=== PATIENT | male | born 1940 | race Caucasian/White ===

== ENCOUNTER → 2018-01-28 | Outpatient (CLI) | payer MEDICARE ==
--- NOTE | 2018-01-29 09:26 | US ---
EXAMINATION TYPE: US kidneys/renal and bladder DATE OF EXAM: 01/28/2018 COMPARISON: NONE CLINICAL HISTORY: R82.99 Other abnormal findings in urine. Creatinine clearance. Abnormal glomerular filtration EXAM MEASUREMENTS: Right Kidney: 14.7 x 5.5 x 5.7 cm Left Kidney: 11.3 x 6.0 x 4.8 cm Right Kidney: enlarged, cystic areas noted, largest = 6.5 x 7.1 x 6.6cm Left Kidney: somewhat lobulated, no evidence of hydronephrosis Bladder: appears wnl Bilateral Jets seen: no, right jet is identified only. Cortical medullary differentiation is maintained. Anechoic foci associated with the right kidney show increased through transmission, imperceptible wall and exophytic location at the lower pole, centere d at the cortical medullary level of the mid pole. Enlarged prostate is thought to cause an inferior impression on the urinary bladder. IMPRESSION: Simple cyst associated with the right kidney. Suspect prostate enlargement. Additional findings above .
== END | disposition home or self-care (01) ==
LOC: RADUSMAIN 17:16
PROVIDERS: ATTEND Family Medicine
DX: N28.1 Cyst of kidney, acquired (principal)
CPT/HCPCS: 76770

== ENCOUNTER → 2018-09-25 | Outpatient (CLI) | payer MEDICARE ==
--- NOTE | 2018-09-25 08:02 | US ---
EXAMINATION TYPE: US liver DATE OF EXAM: 09/25/2018 COMPARISON: NONE CLINICAL HISTORY: [id number] ABN LIVER ENZYMES. abnormal labs, no pain, NPO. Patient states having GB rem wilder but doesn't remember when. EXAM MEASUREMENTS: Liver Length: 19.8 cm CBD: 0.4 cm CHD: 0.6 cm Right Kidney: 13.9 x 5.7 x 5.1 cm Pancreas: Obscured by bowel gas Liver: Appears enlarged in size. Course. Increased attenuation, decreased visualization of vessels suggestive of fatty infiltrate , which limits evaluation for underlying hepatic masses. Gallbladder: Surgically absent Evidence for sonographic Moody's sign: neg CBD: wnl CHD: wnl Right Kidney: Multiple cystic appearing lesions seen. Largest measured. 1- Lateral lower= 6.8 x 6.7 x 6.7 cm. 2- Mid= 3.7 x 3.1 x 2.9 cm. IMPRESSION: 1. Sonographic findings most compatible with hepatic steatosis. 2. Simple appearing right renal cysts measuring up to 6.8 cm. 3. Surgical absence of the gallbladder.
== END | disposition home or self-care (01) ==
LOC: RADUSWWP 06:48
PROVIDERS: ATTEND Family Medicine
DX: N28.1 Cyst of kidney, acquired (principal); R74.8 Abnormal levels of other serum enzymes; Z90.49 Acquired absence of other specified parts of digestive tract
CPT/HCPCS: 76705

== ENCOUNTER → 2019-06-22 | Outpatient (CLI) | payer MEDICARE ==
[2019-06-22 23:46] LABS: African American GFR (CKD) 47.5 (60.0-200.0); Anion Gap 12.8 mmol/L (4.00-12.00); BUN/Creat Ratio 13.13 Ratio (12.00-20.00); Carbon Dioxide 26.2 mmol/L (21.6-31.8); Potassium 3.7 mmol/L (3.5-5.5)
[2019-06-23 01:25] LABS: Hemoglobin A1C 7.2 % (4.0-6.0)
== END | disposition home or self-care (01) ==
LOC: LABWHC1 16:22
PROVIDERS: ATTEND Internal Medicine
DX: E11.65 Type 2 diabetes mellitus with hyperglycemia (principal)
CPT/HCPCS: 36415; 80048; 83036

== ENCOUNTER → 2020-09-11 | Outpatient (CLI) | payer MEDICARE ==
[2020-09-11 09:06] LABS: Basophils % (A) 1 %; Eosinophils # (A) 0.3 k/uL (0-0.7); Eosinophils % (A) 4 %; HCT 41.3 % (39.0-53.0); HGB 13.9 gm/dL (13.0-17.5); Lymphocytes # (A) 1.2 k/uL (1.0-4.8); Lymphocytes % (A) 19 %; MCH 28.7 pg (25.0-35.0); MCHC 33.5 g/dL (31.0-37.0); MCV 85.5 fL (80.0-100.0); Mean Platelet Volume 7.5; Monocytes # (A) 0.4 k/uL (0-1.0); Monocytes % (A) 5 %; Neutrophils # (A) 4.6 k/uL (1.3-7.7); Neutrophils % (A) 70 %; Platelet Count 208 k/uL (150-450); RBC 4.84 m/uL (4.30-5.90); RDW 13.1 % (11.5-15.5); WBC 6.6 k/uL (3.8-10.6)
[2020-09-11 09:23] LABS: Calcium 9.6 mg/dL (8.4-10.2); Potassium 3.3 mmol/L (3.5-5.1)
[2020-09-11 09:25] LABS: Partial Thromboplastin Time 40.2 sec (22.0-30.0); Prothrombin Time 51.4 sec (9.0-12.0)
[2020-09-11 09:39] LABS: Appearance,Urine Clear (Clear); Bilirubin,Urine Negative (Negative); Blood,Urine Trace (Negative); Color,Urine Yellow; Glucose,Urine (UA) Negative (Negative); Ketones,Urine Negative (Negative); Leukocyte Esterase,Urine Negative (Negative); Mucus,Urine Rare /hpf; Nitrite,Urine Negative (Negative); Protein,Urine Trace (Negative); RBC,Urine 6 /hpf (0-5); Specific Gravity,Urine 1.015 (1.001-1.035); Squamous Epithelial Cell,Urine <1 /hpf (0-4); Urobilinogen,Urine <2.0 mg/dL (<2.0); WBC,Urine 1 /hpf (0-5)
[2020-09-11 09:49] LABS: INR 5.3 (<1.2)
--- NOTE | 2020-09-11 14:33 | XR ---
EXAMINATION TYPE: XR chest 2V DATE OF EXAM: 09/11/2020 COMPARISON: Chest x-ray 08/19/2013 HISTORY: Presurgical TECHNIQUE: Frontal and lateral views of the chest are obtained. FINDINGS: There is no focal air space opacity, pleural effusion, or pneumothorax seen. The cardiac silhouette size is within normal limits. Aorta is dense as on prior exam. The osseous structures ar e intact. Surgical clips present in the upper abdomen. IMPRESSION: No acute cardiopulmonary process.
== END | disposition home or self-care (01) ==
LOC: LABPAT 07:43
PROVIDERS: ATTEND Orthopaedic Surgery Orthopaedic Surgery of the Spine
DX: Z01.818 Encounter for other preprocedural examination (principal); M48.02 Spinal stenosis, cervical region
CPT/HCPCS: 36415; 71046; 80048; 81001; 85025; 85610; 85730; 86850; 86900; 86901; 93005

== ENCOUNTER → 2020-09-29 | Outpatient (CLI) | payer MEDICARE ==
[2020-09-29 10:38] LABS: Basophils # (A) 0.1 k/uL (0-0.2); Basophils % (A) 1 %; Eosinophils # (A) 0.3 k/uL (0-0.7); Eosinophils % (A) 4 %; HCT 41.5 % (39.0-53.0); HGB 13.9 gm/dL (13.0-17.5); Lymphocytes # (A) 1.3 k/uL (1.0-4.8); Lymphocytes % (A) 19 %; MCHC 33.5 g/dL (31.0-37.0); MCV 86.3 fL (80.0-100.0); Mean Platelet Volume 7.6; Monocytes # (A) 0.3 k/uL (0-1.0); Monocytes % (A) 5 %; Neutrophils # (A) 4.7 k/uL (1.3-7.7); Neutrophils % (A) 70 %; Platelet Count 205 k/uL (150-450); RDW 13.3 % (11.5-15.5); WBC 6.8 k/uL (3.8-10.6)
[2020-09-29 10:40] LABS: Appearance,Urine Clear (Clear); Bacteria,Urine Rare /hpf; Bilirubin,Urine Negative (Negative); Blood,Urine Large (Negative); Color,Urine Yellow; Glucose,Urine (UA) 1+ (Negative); Ketones,Urine Negative (Negative); Leukocyte Esterase,Urine Negative (Negative); Mucus,Urine Rare /hpf; Nitrite,Urine Negative (Negative); PH, Urine 5.5 (5.0-8.0); Protein,Urine 1+ (Negative); RBC,Urine >182 /hpf (0-5); Specific Gravity,Urine 1.018 (1.001-1.035); Urobilinogen,Urine <2.0 mg/dL (<2.0); WBC,Urine 6 /hpf (0-5)
[2020-09-29 10:47] LABS: INR 1.1 (<1.2); Prothrombin Time 11.2 sec (9.0-12.0)
[2020-09-29 10:48] LABS: Partial Thromboplastin Time 25.5 sec (22.0-30.0)
== END | disposition home or self-care (01) ==
LOC: LABPAT 10:06
PROVIDERS: ATTEND Orthopaedic Surgery Orthopaedic Surgery of the Spine
DX: Z01.818 Encounter for other preprocedural examination (principal); M48.02 Spinal stenosis, cervical region
CPT/HCPCS: 81001; 85025; 85610; 85730

== ENCOUNTER 2020-10-02 06:10 | Inpatient (IN) | payer MEDICARE ==
[2020-09-07 11:14] VITALS: BMI 30.5
[~2020-10-02 06:10] MED LIST: ceFAZolin 1,000 MG in SODIUM CHLORIDE 0.9% IRRIGATIO 1,000 ML IRRIGATION PRN
[2020-10-02] MEDS ORDERED: ONDANSETRON 4 MG/2 ML VIAL IVP ONE (06:48)
[2020-10-02] MEDS ORDERED: DEXAMETHASONE SOD PHOSPHATE 4 MG/ML 1 ML VIAL IV ONE (06:48)
[2020-10-02] MEDS ORDERED: MIDAZOLAM 2 MG/2 ML VIAL IV PRN (06:48)
[2020-10-02] MEDS ORDERED: LIDOCAINE 1% (10MG/ML) FOR IV START INTRADERMA ONE (07:07)
[2020-10-02] MEDS: LACTATED RINGERS 1,000 ML IV SCH (07:07)
[2020-10-02 07:17] LABS: Glucose,Whole Blood 103 mg/dL (75-99)
[2020-10-02 07:28] LABS: INR 1.1 (<1.2); Prothrombin Time 11.8 sec (9.0-12.0)
[2020-10-02] MEDS ORDERED: SUCCINYLCHOLINE CHLORIDE 100 MG/5 ML SYR IV ONE (07:30)
[2020-10-02] MEDS ORDERED: PROPOFOL 10 MG/ML 20 ML VIAL IV ONE (07:30)
[2020-10-02] MEDS ORDERED: LIDOCAINE 1% INJ 10MG/ML (20 ML MDV) ONE (07:30)
[2020-10-02] MEDS ORDERED: NEOSTIGMINE 1 MG/ML 10 ML VIAL ONE (07:30)
[2020-10-02] MEDS ORDERED: DEXAMETHASONE SOD PHOSPHATE 10 MG/ML 1 ML VIAL ONE (07:30)
[2020-10-02] MEDS ORDERED: ROCURONIUM 10 MG/ML (5 ML VIAL) IV ONE (07:30)
[2020-10-02] MEDS ORDERED: fentaNYL (PF) 50 MCG/ML 2 ML AMP ONE (07:30)
[2020-10-02] MEDS ORDERED: PHENYLEPHRINE-0.9% NACL SYG 1,000 MCG/10 ML SYRINGE ONE (07:30)
[2020-10-02] MEDS ORDERED: GLYCOPYRROLATE 0.2 MG/ML 2 ML VIAL ONE (07:30)
[2020-10-02] MEDS ORDERED: ePHEDrine SULFATE/0.9% NACL/PF 50 MG/5 ML SYRINGE IV ONE (07:30)
[2020-10-02] MEDS ORDERED: THROMBIN (BOVINE) 5,000 UNIT VIAL TOPICAL ONE (07:51)
[2020-10-02] MEDS ORDERED: GELATIN SPONGE,ABSORB (LARGE) 1 EACH SPONGE TOPICAL ONE (07:51)
[2020-10-02] MEDS ORDERED: LIDOCAINE 0.5%-EPI 1:200,000 50 ML VIAL SQ ONE (07:51)
[2020-10-02] MEDS ORDERED: LACTATED RINGERS 1,000 ML IV ONE (08:46)
[2020-10-02 08:57] LABS: Glucose,Whole Blood 110 mg/dL (75-99)
--- NOTE | 2020-10-02 08:58 | XR ---
EXAMINATION TYPE: XR cervical spine 1V DATE OF EXAM: 10/02/2020 COMPARISON: NONE HISTORY: Needle placement TECHNIQUE: One view submitted FINDINGS: Metallic instrument overlying the cervical spine the approximate levels C4-C5 anteriorly. E ndotracheal tube suggested. Degenerative change with facet arthropathy. IMPRESSION: Intraoperative localization
[2020-10-02 10:08] LABS: Glucose,Whole Blood 131 mg/dL (75-99)
[2020-10-02 10:49] LABS: Glucose,Whole Blood 148 mg/dL (75-99)
--- NOTE | 2020-10-02 11:14 | XR ---
EXAMINATION TYPE: XR cervical spine 1V DATE OF EXAM: 10/02/2020 COMPARISON: NONE HISTORY: Postop TECHNIQUE: One view submitted FINDINGS: Endotracheal tube is seen there is postsurgical changes involving the vertebral column. Res olution limited by intraoperative technique. IMPRESSION: Postoperative change
[2020-10-02] MEDS ORDERED: HYDROmorphone 0.5 MG/0.5 ML SYRINGE IVP PRN (11:22)
[2020-10-02] MEDS ORDERED: HYDROcodone/APAP 5-325MG 1 EACH TAB PO PRN (11:22)
[2020-10-02] MEDS ORDERED: HYDROmorphone 1 MG/ML 1 ML SYRINGE IVP PRN (11:22)
[2020-10-02] MEDS ORDERED: ACETAMINOPHEN TAB 325 MG TAB PO PRN (11:22)
[2020-10-02] MEDS ORDERED: ONDANSETRON 4 MG/2 ML VIAL IVP PRN (11:22)
[2020-10-02] MEDS ORDERED: BENZOCAINE/MENTHOL LOZENG 1 EACH LOZENGE MUCOUS MEM PRN (11:22)
[2020-10-02] MEDS ORDERED: traMADol 50 MG TAB PO PRN (11:23)
--- NOTE | 2020-10-02 11:32 | P.OP ---
Date of Procedure: 10/02/20 Preoperative Diagnosis: Cervical and myelopathy, cervical stenosis C3 4 C4 5 C5 6 C6 7, upper extremity radiculopathy, upper extremity weakness, neck pain, degenerative disc disease, possible autofusion C5 6 Postoperative Diagnosis: Same, with findings of stable auto fusion C5 6 Anesthesia: GETA Pathology: none sent Condition: stable Disposition: PACU Description of Procedure: BRIEF OPERATIVE NOTE Preoperative Diagnosis:Cervical and myelopathy, cervical stenosis C3 4 C4 5 C5 6 C6 7, upper extremity radiculopathy, upper extremity weakness, neck pain, degenerative disc disease, possible autofusion C5 6 Postoperative Diagnosis: Same with findings of stable autofusion at C5 6 Procedure: Anterior cervical decompression and fusion C3 4 C4 5 C6 7 Placement of interbody graft C3 4 C4 5 C6 7 Exploration of autofusion C5 6 with findings of stable autofusion Application of anterior cervical plate C3 4 5 6 and 7 Surgeon: Dr. Lacey [employer] Scientist: Dimitry Brady is present throughout the entire the case persistence during positioning, dissection, exposure, visualization, and all crucial elements of the case as well as closure. Anesthesia: General anesthesia per Dr. Salazar Estimated blood loss: Approximately 200 mL Complications: None apparent Components implanted: K2M [place] anterior cervical plate system with vikos interbody under bone graft and 1 mL of DBX bone putty supplement the bone graft Disposition: To recovery room in good stable condition. OPERATIVE INDICATIONS The patient has had long-standing issues in their neck and upper extremities. He had been having some stability however over the past several months has been developing significant worsening at his neck and upper extremities. He has noticed some changes in his pain and his function at his upper extremities and somewhat at his balance. He was found have severe degenerative changes at his cervical spine from C3 to C7 with evidence of some severe cervical stenosis and early myelopathy. The patient has been through conservative treatment. He is having worsening of his symptoms and surgical options were explained to him. We discussed various treatment options including surgery, and the patient wishes to proceed with surgery We discussed the risk, patient's alternatives and benefits of surgery including but not limited to, risk of bleeding risk of infection, risk of need for further surgery, risk of decreased, loss of motion, muscle function, malunion nonunion, hardware failure, nerve damage, paralysis, heart attack, and . OPERATIVE SUMMARY After discussing all the risks, patient alternatives and benefits at length, the patient elected to proceed with surgical intervention, signed informed consent, and presented for their procedure. The patient was seen and examined in the preoperative holding area and the surgical site was marked. The patient was given antibiotics and brought to the operating room. The patient was positioned on the operating room table in a supine position being careful to pad any bony prominences and pressure points. The patient was sedated and intubated by anesthesia in standard fashion. Once the airway and C- spine were stabilized the patient's arms were padded and tucked at her side, with her shoulders gently taped. The head was placed in a donut pad with the neck in good neutral alignment and position. We were careful to maintain the patient's cervical spine and good neutral alignment and position throughout. The patient was prepped and draped in a normal standard fashion. An appropriate timeout and keystone protocol performed. We were able to proceed with the surgery. The local wound area was infiltrated with local anesthetic. An incision was made longitudinally approximately 3 cm over the appropriate levels from C3 to C7. Dissection was taken down subcutaneously to the level of the platysma which was split in line with its fibers. Dissection was taken with a carotid approach, with the trachea and esophagus medial and the carotid sheath laterally. We dissected down to the anterior surface of the vertebral bodies. Intraoperative x-ray was taken which showed a marker at the appropriate level of C4 5. With the appropriate level positively confirmed, we were able to proceed with discectomy at the appropriate levels starting at C3 4 and working caudally this [id number]. All of the operative levels were exposed appropriately. The large anterior osteophytes throughout particularly at C5 6 and C6 7 The patient had all their twitches back, and there was no evidence of recurrent laryngeal issue. The wound was copiously irrigated and suctioned dry as had been done periodically throughout the case. I was taking on the anterior spur at C56. There is no evidence of any motion at C5 6. There is no evidence of significant disc space and there appeared to be stable autofusion at that level. I took down a significant portion of anterior spur and there was findings of fusion across the anterior vertebral body at C5 6. I felt that level was stable and decided not to pursue further takedown of the level or to pursue further discectomy or decompression at that level. I was able to find the appropriate disc space and motion at C34 C4 5 and C6 7 and proceeded with the anterior discectomy at these levels as planned. At the appropriate level/levels at C3 4 C4 5 and C6 7, I established an annulotomy with an 11 blade scalpel. A discectomy was performed with a combination of pituitary rongeurs, curettes, a high-speed bur, and Kerrison rongeurs. Large anterior osteophytes were removed. There is findings a large posterior osteophytes as well and these were taken down meticulously. The posterior longitudinal ligament was taken down as were any posterior osteophytes. This gave good central and bilateral foraminal decompression. There is no evidence of any dural tear or leak. The endplates were prepared with a high-speed bur. With the endplates in good parallel position, I was able to size for the appropriate size interbody graft. The wound was irrigated and suctioned dry the graft was prepared and malleted into position. It had good alignment and position with the anterior surface flush with the anterior surface of the vertebral bodies. This was done similarly the appropriate levels at C3 4 C4 5 and C6 7. With the grafts intact, I was able to measure and contour and appropriate sized plate. The plate was positioned at the midline over the appropriate levels from C3 to C7. Screw holes were established with a hand drill and drill guide. Screws were placed in good alignment and position with adequate bony purchase. They were seated under the locking device. The construct was checked and found to be stable. Intraoperative x-ray was taken which showed good alignment and position of the implants at the appropriate levels. There was no evidence of any dural tear or leak. Good hemostasis was maintained. The wound was copiously irrigated and suctioned dry as had been done periodically throughout the case. The platysma was closed with absorbable suture. The subcutaneous tissue was closed. The subcuticular tissue was closed with absorbable suture. The wound was cleaned and dried and dressed appropriately. A soft cervical collar was placed appropriately. The patient was woken up by anesthesia, extubated, transferred back gently to their hospital bed and brought to the recovery room in good stable condition. The patient will be admitted to the hospital for appropriate postoperative care, medical management and monitoring. We will continue to follow them closely about the postoperative course.
[2020-10-02] MEDS: HYDROmorphone 0.5 MG/0.5 ML SYRINGE IVP PRN ×4 (12:18→14:47)
[2020-10-02] MEDS ORDERED: REPAGLINIDE 1 MG TAB PO SCH (17:30)
[2020-10-02] MEDS ORDERED: PIOGLITAZONE 30 MG TAB PO SCH (17:30)
[2020-10-02] MEDS ORDERED: amLODIPine 5 MG TAB PO SCH (17:30)
[2020-10-02 17:36] LABS: Glucose,Whole Blood 220 mg/dL (75-99)
[2020-10-02] MEDS ORDERED: INSULIN ASPART (NovoLOG) 100 UNIT/ML VIAL SQ ONE (17:41)
[2020-10-02] MEDS: SODIUM CHLORIDE 0.9% 1,000 ML IV SCH (18:18)
[2020-10-02] MEDS: PROPAFENONE 150 MG TAB PO SCH (20:46)
[2020-10-03 05:40] VITALS: BP 152/79; PULSE 112; RESP 20; TEMP 98.3
[2020-10-03] MEDS: SODIUM CHLORIDE 0.9% 1,000 ML IV SCH (05:41)
[2020-10-03 07:22] LABS: Glucose,Whole Blood 191 mg/dL (75-99)
[2020-10-03] MEDS: LACTATED RINGERS 1,000 ML IV SCH (08:00)
[2020-10-03] MEDS: PROPAFENONE 150 MG TAB PO SCH (08:08)
[2020-10-03] MEDS ORDERED: ATORVASTATIN 20 MG TAB PO SCH (09:00)
[2020-10-03] MEDS ORDERED: ASPIRIN 81 MG PO SCH (09:00)
[2020-10-03] MEDS ORDERED: lisinopriL 10 MG TAB PO SCH (09:00)
[2020-10-03] MEDS ORDERED: MULTIVITAMINS, THERA 1 EACH TAB PO SCH (09:00)
[2020-10-03] MEDS ORDERED: SENNOSIDES-DOCUSATE SODIUM 1 EACH TAB PO SCH ×2 (09:00)
[2020-10-03] MEDS ORDERED: hydroCHLOROthiazide 25 MG TAB PO SCH (09:00)
[2020-10-03] MEDS ORDERED: APIXABAN 5 MG TAB PO SCH (09:00)
[2020-10-03] MEDS ORDERED: INSULIN DETEMIR (LEVEMIR) 100 UNIT/ML SYR SQ SCH (09:00)
--- NOTE | 2020-10-03 11:31 | XR ---
EXAMINATION TYPE: XR cervical spine 1V DATE OF EXAM: 10/02/2020 COMPARISON: NONE HISTORY: Postop TECHNIQUE: One view submitted FINDINGS: Single lateral view demonstrates endotracheal tube and portions of the postsurgical region which appear in near-anatomic alignment. Diffuse osteopenia and facet arthropathy noted. Soft tissue artifact limits portion of the lower cervical spine. IMPRESSION: Postoperative change
== END 2020-10-03 11:03 | disposition home or self-care (01) | DRG 472 ==
LOC: OR 06:10 → 5NMEDONC 11:26 → OR 11:38 → 5NMEDONC 17:53
PROVIDERS: ADMIT Orthopaedic Surgery Orthopaedic Surgery of the Spine; ATTEND Orthopaedic Surgery Orthopaedic Surgery of the Spine
PROC: 0RB30ZZ Excision of Cervical Vertebral Disc, Open Approach (ICD-10-PCS; 2020-10-02)
PROC: 01N10ZZ Release Cervical Nerve, Open Approach (ICD-10-PCS; 2020-10-02)
PROC: 0RG20A0 Fusion of 2 or more Cervical Vertebral Joints with Interbody Fusion Device, Anterior Approach, Anterior Column, Open Approach (ICD-10-PCS; principal; 2020-10-02 07:30)
DX: M48.02 Spinal stenosis, cervical region (principal); M50.01 Cervical disc disorder with myelopathy, high cervical region; E11.9 Type 2 diabetes mellitus without complications; M50.11 Cervical disc disorder with radiculopathy, high cervical region; I10 Essential (primary) hypertension; H91.90 Unspecified hearing loss, unspecified ear; E78.5 Hyperlipidemia, unspecified; M43.02 Spondylolysis, cervical region; E66.9 Obesity, unspecified; Z68.31 Body mass index [BMI] 31.0-31.9, adult; Z79.01 Long term (current) use of anticoagulants; Z79.82 Long term (current) use of aspirin; Z79.899 Other long term (current) drug therapy; Z87.891 Personal history of nicotine dependence
CPT/HCPCS: 72020; 81001; 85025; 85610; 85730; 86850; 86900; 86901

== ENCOUNTER → 2022-01-15 | Outpatient (CLI) | payer MEDICARE ==
--- NOTE | 2022-01-15 12:49 | CT ---
EXAMINATION TYPE: CT pelvis w con DATE OF EXAM: 01/15/2022 COMPARISON: None. HISTORY: Prostate cancer CT DLP: 1013.2 mGycm Automated exposure control for dose reduction was used. CONTRAST: Performed with oral and with IV Contrast, patient injected with 80 mL of Isovue 300. FINDINGS: There are 2 large thin-walled cyst from the mid to lower pole level right kidney. Urinary bladder jose antonio ws mild to moderate distention. There is enlarged prostate consistent with BPH. Scattered adjacent pe lvic phleboliths. Few prominent but subcentimeter lymph nodes along the iliac chain vessels bilaterally. For reference there is 2.0 x 0.9 cm lymph node on the right axial image 43. No free fluid in the pelvis. Images of the pelvis show contrast-filled appendix. No suspicious small or large bowel dilatation. Mild to moderate axial joint space loss in both hips. Nonspecific round sclerotic lesion upper sacral level image 42. Additional small round sclerotic lesi ons L4 vertebra coronal image 36 along with L2 vertebra anteriorly sagittal image 43 with sclerosis a long the anterior superior endplate. Sclerotic bone lesions in the right proximal femur 3 levels port al image 37. Vague area of sclerosis right iliac bone just superior to the acetabulum on image 35 IMPRESSION: Suspicious scattered sclerotic lesions throughout the pelvis as detailed above worrisome for osseous metastatic disease should be correlated with same day bone scan. Nonspecific subcentimete r pelvic lymph nodes noted.
--- NOTE | 2022-01-15 15:56 | NM ---
EXAMINATION TYPE: NM bone scan whole body DATE OF EXAM: 01/15/2022 COMPARISON: CT same date HISTORY: Prostate cancer Delayed whole-body scanning was performed following the injection of 22.8 mCi Tc 99m MDP. Images acq uired 3 hours post injection. FINDINGS: Sclerotic foci involving the pelvis from CT are noted, the right ilium shows abnormal uptake as does the posterior left ilium, the posterior left ischium, right femoral neck. The posterior elements at L 5 show focal uptake which may be related to degenerative change of the facet. Uptake within the feet, left ankle, hands, wrists, elbows and shoulders is likely degenerative. Photo penic areas within the knees consistent with knee arthroplasties. There are focal areas of uptake inv olving the posterior mid ribs, thoracic vertebral body posterior elements. There is a focus of uptake within the sternum near the sternomanubrial joint and the anterior left second rib also shows abnorm al uptake. Soft tissue uptake is within normal limits. 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
== END | disposition home or self-care (01) ==
LOC: RADNMMAIN 10:34
PROVIDERS: ATTEND Urology
DX: C61 Malignant neoplasm of prostate (principal)
CPT/HCPCS: 82565; 84520; 72193; 36415; 78306; A9503; Q9967

== ENCOUNTER 2022-06-09 15:05 | Emergency (ER) | payer MEDICARE ==
[2022-06-09 15:39] VITALS: TEMP 97.5
--- NOTE | 2022-06-09 15:50 | ED ---
General Adult HPI - General Chief complaint: Neuro Symptoms/Deficit Stated complaint: LT sided facial pain Time Seen by Provider: 06/09/22 15:40 Source: patient Mode of arrival: ambulatory Limitations: no limitations - History of Present Illness Initial comments: Dictation was produced using pbs[employer] dictation software. please excuse any grammatical, word or spelling errors. Chief Complaint: 81-year-old male presents with left-sided facial droop History of Present Illness: Patient is an 81-year-old male he presents emergency Department with left-sided facial droop. He began noticing systems yesterday. He started to feel like his eye began watering and he had a foreign body. That that is perhaps concrete dust. Today he went to lunch and had a drink when he noticed liquid dribbling out of the left side of his mouth. Decided come to the emergency department. Patient has a history of cancer. The ROS documented in this emergency department record has been reviewed and confirmed by me. Those systems with pertinent positive or negative responses have been documented in the HPI. All other systems are other negative and/or noncontributory. PHYSICAL EXAM: General Impression: Alert and oriented x3, not in acute distress HEENT: Normocephalic atraumatic, extra-ocular movements intact, pupils equal and reactive to light bilaterally, mucous membranes moist, mild conjunctivitis of the left eye Cardiovascular: Heart regular rate and rhythm Chest: Able to complete full sentences, no retractions, no tachypnea Abdomen: abdomen soft, non-tender, non-distended, no organomegaly Musculoskeletal: Pulses present and equal in all extremities, no peripheral edema Motor: no focal deficits noted Neurological: Left periorbital weakness, left-sided lower facial droop Skin: Intact with no visualized rashes Psych: Normal affect and mood ED course: 81 yo male w clinical presentation consistent with Russo palsy. Vital signs upon arrival are within acceptable limits. No concern for CVA because he has upper and lower facial findings. Computed tomography scan of brain is unremarkable. Patient counseled on eye care, steroid administration and antiviral administration. Advised follow up with primary care doctor. Return precautions discussed. Patient sent home with drops and eye ointment from the emergency department. Antivirals and prednisone prescription sent to patient's pharmacy. Patient given a dose of steroids and antivirals prior to discharge. - Related Data Home Medications Medication Instructions Recorded Confirmed Aspirin 81 mg PO DAILY 06/14/14 10/02/20 amLODIPine [Norvasc] 5 mg PO W/SUPPER 06/14/14 10/02/20 traMADol HCl [Ultram] 50 mg PO TID PRN 06/14/14 10/02/20 Eye Caps 1 cap PO DAILY 11/29/15 10/02/20 Multivitamin [Men's Multi-Vitamin] 1 tab PO DAILY 11/29/15 10/02/20 Insulin Glargine [Lantus] 55 unit SQ QAM 09/07/20 10/02/20 Apixaban [Eliquis] 5 mg PO BID 09/29/20 10/02/20 Atorvastatin [Lipitor] 20 mg PO DAILY 09/29/20 10/02/20 Pioglitazone [Actos] 30 mg PO W/SUPPER 09/29/20 10/02/20 Propafenone HCl 150 mg PO BID 09/29/20 10/02/20 Repaglinide [Prandin] 0.5 mg PO W/SUPPER 09/29/20 10/02/20 hydroCHLOROthiazide [Hydrodiuril] 25 mg PO DAILY 09/29/20 10/02/20 lisinopriL 30 mg PO DAILY 09/29/20 10/02/20 Previous Rx's Medication Instructions Recorded Artificial Tears-Hypromellose 1 drops LEFT EYE TID #10 ml 06/09/22 [Artificial Tear Drops] predniSONE 80 mg PO DAILY 7 Days #14 tab 06/09/22 valACYclovir HCL [Valtrex] 1,000 mg PO DAILY 7 Days #7 tablet 06/09/22 Allergies Allergy/AdvReac Type Severity Reaction Status Date / Time No Known Allergies Allergy Verified 06/09/22 15:39 Review of Systems ROS Statement: Those systems with pertinent positive or pertinent negative responses have been documented in the HPI. ROS Other: All systems not noted in ROS Statement are negative. Past Medical History Past Medical History: Atrial Fibrillation, Diabetes Mellitus, Hyperlipidemia, Hypertension, Osteoarthritis (OA), Sleep Apnea/CPAP/BIPAP Additional Past Medical History / Comment(s): limit of movement rt arm History of Any Multi-Drug Resistant Organisms: None Reported Past Surgical History: Cardiac Ablation, Cholecystectomy, Heart Catheterization, Joint Replacement Additional Past Surgical History / Comment(s): ROSS KNEE ARTHROPLASTY, ross cataracts Past Anesthesia/Blood Transfusion Reactions: No Reported Reaction Past Psychological History: No Psychological Hx Reported Smoking Status: Former smoker Past Alcohol Use History: None Reported Past Drug Use History: None Reported - Past Family History Mother Additional Family Medical History / Comment(s): MOM IS STILL ALIVE AT AGE 98 HAS Father History Unknown: Yes Brother(s) Family Medical History: Cancer General Exam Limitations: no limitations Course Vital Signs 06/09/22 15:37 Temperature 97.5 F L Pulse Rate 91 Respiratory 20 Rate Blood Pressure 180/82 O2 Sat by Pulse 99 Oximetry Disposition Clinical Impression: Russo palsy Disposition: HOME SELF-CARE Condition: Fair Instructions (If sedation given, give patient instructions): Russo Palsy (ED) Additional Instructions: Eye Protection Cornea eye protection Artificial tears qhr while patient is awake Ophthalmic ointment at night Eye should be taped shut at night Protective glasses or goggles Prednisone 60-80mg qday x1wk Valacyclovir 1000mg TID x1 week Prescriptions: Artificial Tears-Hypromellose [Artificial Tear Drops] 1 drops LEFT EYE TID #10 ml predniSONE 80 mg PO DAILY 7 Days #14 tab valACYclovir HCL [Valtrex] 1,000 mg PO DAILY 7 Days #7 tablet Is patient prescribed a controlled substance at d/c from ED?: No Referrals: Brown Diaz DO [Primary Care Provider] - 1-2 days Time of Disposition: 16:40
--- NOTE | 2022-06-09 16:28 | CT ---
EXAMINATION TYPE: CT brain wo con DATE OF EXAM: 06/09/2022 COMPARISON: None HISTORY: weakness CT DLP: 1110.4 mGycm Automated exposure control for dose reduction was used. Images obtained of the brain with no contrast. Ventricles have normal size. There is cerebral cortical atrophy. There is no mass effect or midline s hift. No sign of intracranial hemorrhage. Calvarium is intact. IMPRESSION: Cerebral atrophy. No acute intracranial abnormality.
[2022-06-09] MEDS ORDERED: ARTIFICIAL TEARS OINTMENT 3.5 GM TUBE LEFT EYE STA (16:29)
[2022-06-09] MEDS ORDERED: predniSONE 20 MG TAB PO STA (16:33)
[2022-06-09] MEDS ORDERED: valACYclovir HCL 1,000 MG TABLET PO STA (16:33)
[2022-06-09] MEDS ORDERED: ARTIFICIAL TEARS-HYPROMELLOSE DROPS 15 ML BTL LEFT EYE SCH (16:45)
[2022-06-09 16:57] VITALS: BP 142/84; PULSE 92; RESP 18
== END 2022-06-09 16:57 | disposition home or self-care (01) ==
LOC: EC 15:05
DX: G51.0 Bell's palsy (principal); I48.91 Unspecified atrial fibrillation; E78.5 Hyperlipidemia, unspecified; I10 Essential (primary) hypertension; Z87.891 Personal history of nicotine dependence; Z79.82 Long term (current) use of aspirin
CPT/HCPCS: 93005; 70450; 99284; J7512

== ENCOUNTER 2022-07-02 06:46 | Emergency (ER) | payer MEDICARE ==
[2022-07-02 06:56] VITALS: RESP 18
--- NOTE | 2022-07-02 07:22 | ED ---
Headache HPI - General Chief Complaint: Headache Stated Complaint: headache & neck pain Time Seen by Provider: 07/02/22 07:00 Source: patient, RN notes reviewed Mode of arrival: ambulatory Limitations: no limitations - History of Present Illness Initial Comments: 81-year-old male who has a history of A. 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 No shortness breath no palpitations no fevers chills sweats cough or other symptoms. He does note that he has a history of neck surgery with a plate and multiple screws. He's questioning whether this may be some of the etiology. Currently the symptoms and this morning her much improved. The pain he states nonspecific. He can't really rated at this time as far as severity or quality. Nothing seems make it better nothing seems to make it worse. Patient also states his legs feel somewhat weak and shaky this morning. He denies any change in his appetite or food or fluid intake. Patient states he does take some blood thinners No other current complaints or modifying factors MD Complaint: headache, other - Related Data Home Medications Medication Instructions Recorded Confirmed Aspirin EC [Ecotrin Low Dose] 81 mg PO DAILY 07/02/22 07/02/22 Cetirizine HCl [Zyrtec] 10 mg PO DAILY 07/02/22 07/02/22 Enzalutamide [Xtandi] 120 mg PO DAILY 07/02/22 07/02/22 Ergocalciferol [Vitamin D2 (1250 1,250 mcg PO TH 07/02/22 07/02/22 Mcg = 57561 Iu)] Ferrous Sulfate [Feosol] 325 mg PO DAILY 07/02/22 07/02/22 Gabapentin 300 mg PO BID 07/02/22 07/02/22 Insulin Aspart [NovoLOG Flexpen] 20 units SQ AC-TID 07/02/22 07/02/22 Insulin Glargine,Hum.rec.anlog 60 units SQ DAILY 07/02/22 07/02/22 [Lantus Solostar Pen] Omeprazole [PriLOSEC] 20 mg PO DAILY 07/02/22 07/02/22 amLODIPine [Norvasc] 10 mg PO DAILY 07/02/22 07/02/22 Allergies Allergy/AdvReac Type Severity Reaction Status Date / Time No Known Allergies Allergy Verified 07/02/22 09:07 Review of Systems ROS Statement: Those systems with pertinent positive or pertinent negative responses have been documented in the HPI. ROS Other: All systems not noted in ROS Statement are negative. Past Medical History Past Medical History: Atrial Fibrillation, Diabetes Mellitus, Hyperlipidemia, Hypertension, Osteoarthritis (OA), Sleep Apnea/CPAP/BIPAP Additional Past Medical History / Comment(s): limit of movement rt arm History of Any Multi-Drug Resistant Organisms: None Reported Past Surgical History: Cardiac Ablation, Cholecystectomy, Heart Catheterization, Joint Replacement Additional Past Surgical History / Comment(s): ROSS KNEE ARTHROPLASTY, ross cataracts Past Anesthesia/Blood Transfusion Reactions: No Reported Reaction Past Psychological History: No Psychological Hx Reported Smoking Status: Former smoker Past Alcohol Use History: None Reported Past Drug Use History: None Reported - Past Family History Mother Additional Family Medical History / Comment(s): MOM IS STILL ALIVE AT AGE 98 HAS Father History Unknown: Yes Brother(s) Family Medical History: Cancer General Exam - General Exam Comments Initial Comments: This a well-developed well-nourished awake alert oriented 4 male Limitations: no limitations General appearance: alert, in no apparent distress Head exam: Present: atraumatic, normocephalic, normal inspection, other (Left facial asymmetry consistent with the pills palsy diagnosis) Eye exam: Present: PERRL, EOMI. Absent: scleral icterus, conjunctival in jection, periorbital swelling ENT exam: Present: mucous membranes dry Neck exam: Present: normal inspection, full ROM, other (No stridor JVD or bruits ). Absent: tenderness, meningismus, lymphadenopathy Respiratory exam: Present: normal lung sounds bilaterally. Absent: respiratory distress, wheezes, rales, rhonchi, stridor Cardiovascular Exam: Present: regular rate, normal rhythm, normal heart sounds. Absent: systolic murmur, diastolic murmur, rubs, gallop, clicks GI/Abdominal exam: Present: soft, normal bowel sounds. Absent: distended, tenderness, guarding, rebound, rigid, bruit, pulsatile mass Extremities exam: Present: full ROM, normal capillary refill, pedal edema (Trace edema. She states is normal for him). Absent: tenderness, joint swelling, calf tenderness Back exam: Present: normal inspection Neurological exam: Present: alert, oriented X3, CN II-XII intact Psychiatric exam: Present: normal affect, normal mood Skin exam: Present: warm, dry, intact, normal color. Absent: rash Course Vital Signs 07/02/22 07/02/22 07/02/22 06:50 08:19 08:53 Temperature 97.7 F Pulse Rate 82 86 Respiratory 18 18 Rate Blood Pressure 188/88 188/112 138/91 O2 Sat by Pulse 99 96 Oximetry - Reevaluation(s) Reevaluation #1: 07/02/22 10:41 Patient did get some relief from the Toradol. He was given additional pain medication with improvement. Medical Decision Making - Medical Decision Making Patient did present with complaints of neck pain the radiated down into his chest. Appears to be secondary to musculoskeletal origin. He did also did not take his blood pressure medication today. He was given his medication the emergency department is showing improved he will be discharged we did discuss the findings. This does appear to be noncardiac/non-pulmonary etiology. He will follow-up with his doctor return when necessary - Lab Data Result diagrams: 07/02/22 07:27 07/02/22 07:27 Lab Results 07/02/22 07/02/22 07/02/22 Range/Units 07:27 07:27 07:27 WBC 7.3 (3.8-10.6) k/uL RBC 5.14 (4.30-5.90) m/uL Hgb 15.1 (13.0-17.5) gm/dL Hct 43.6 (39.0-53.0) % MCV 84.8 (80.0-100.0) fL MCH 29.3 (25.0-35.0) pg MCHC 34.6 (31.0-37.0) g/dL RDW 13.1 (11.5-15.5) % Plt Count 201 (150-450) k/uL MPV 8.6 Neutrophils % 69 % Lymphocytes % 19 % Monocytes % 6 % Eosinophils % 4 % Basophils % 1 % Neutrophils # 5.0 (1.3-7.7) k/uL Lymphocytes # 1.4 (1.0-4.8) k/uL Monocytes # 0.4 (0-1.0) k/uL Eosinophils # 0.3 (0-0.7) k/uL Basophils # 0.1 (0-0.2) k/uL PT 10.6 (9.0-12.0) sec INR 1.0 (<1.2) APTT 23.2 (22.0-30.0) sec D-Dimer 0.60 H (<0.60) mg/L FEU Sodium 139 (137-145) mmol/L Potassium 4.2 (3.5-5.1) mmol/L Chloride 104 (98-107) mmol/L Carbon Dioxide 24 (22-30) mmol/L Anion Gap 11 mmol/L BUN 20 (9-20) mg/dL Creatinine 1.02 (0.66-1.25) mg/dL Est GFR (CKD-EPI)AfAm 80 (>60 ml/min/1.73 sqM) Est GFR (CKD-EPI)NonAf 69 (>60 ml/min/1.73 sqM) Glucose 283 H (74-99) mg/dL Calcium 9.4 (8.4-10.2) mg/dL Magnesium 1.5 L (1.6-2.3) mg/dL Total Bilirubin 1.1 (0.2-1.3) mg/dL AST 36 (17-59) U/L ALT 35 (4-49) U/L Alkaline Phosphatase 148 H (38-126) U/L Troponin I (0.000-0.034) ng/mL NT-Pro-B Natriuret Pep pg/mL Total Protein 6.9 (6.3-8.2) g/dL Albumin 4.2 (3.5-5.0) g/dL Lipase 58 (23-300) U/L 07/02/22 07/02/22 Range/Units 07:27 07:27 WBC (3.8-10.6) k/uL RBC (4.30-5.90) m/uL Hgb (13.0-17.5) gm/dL Hct (39.0-53.0) % MCV (80.0-100.0) fL MCH (25.0-35.0) pg MCHC (31.0-37.0) g/dL RDW (11.5-15.5) % Plt Count (150-450) k/uL MPV Neutrophils % % Lymphocytes % % Monocytes % % Eosinophils % % Basophils % % Neutrophils # (1.3-7.7) k/uL Lymphocytes # (1.0-4.8) k/uL Monocytes # (0-1.0) k/uL Eosinophils # (0-0.7) k/uL Basophils # (0-0.2) k/uL PT (9.0-12.0) sec INR (<1.2) APTT (22.0-30.0) sec D-Dimer (<0.60) mg/L FEU Sodium (137-145) mmol/L Potassium (3.5-5.1) mmol/L Chloride (98-107) mmol/L Carbon Dioxide (22-30) mmol/L Anion Gap mmol/L BUN (9-20) mg/dL Creatinine (0.66-1.25) mg/dL Est GFR (CKD-EPI)AfAm (>60 ml/min/1.73 sqM) Est GFR (CKD-EPI)NonAf (>60 ml/min/1.73 sqM) Glucose (74-99) mg/dL Calcium (8.4-10.2) mg/dL Magnesium (1.6-2.3) mg/dL Total Bilirubin (0.2-1.3) mg/dL AST (17-59) U/L ALT (4-49) U/L Alkaline Phosphatase (38-126) U/L Troponin I <0.012 (0.000-0.034) ng/mL NT-Pro-B Natriuret Pep 191 pg/mL Total Protein (6.3-8.2) g/dL Albumin (3.5-5.0) g/dL Lipase (23-300) U/L - EKG Data -: EKG Interpreted by Me EKG Comments: EKG interpreted by me shows sinus rhythm with evidence of PVCs that appear to be unifocal. Ventricular rate 83 GA interval 158 QRS duration 8070 QT since QTC 470/457 evidence of old inferior changes no acute ST-T wave changes are noted. - Radiology Data Radiology results: image reviewed (I did interpret the imaging no evidence of acute processes.) Disposition Clinical Impression: Atypical chest pain, Myofascial pain on left side, History of Russo's palsy, Cephalgia, Hypertension Disposition: HOME SELF-CARE Condition: Good Instructions (If sedation given, give patient instructions): Acute Headache (ED), Musculoskeletal Pain (ED), Chest Pain (ED) Is patient prescribed a controlled substance at d/c from ED?: No Referrals: Brown Diaz DO [Primary Care Provider] - 1-2 days
[2022-07-02 07:39] LABS: Basophils # (A) 0.1 k/uL (0-0.2); Basophils % (A) 1 %; Eosinophils # (A) 0.3 k/uL (0-0.7); Eosinophils % (A) 4 %; HCT 43.6 % (39.0-53.0); HGB 15.1 gm/dL (13.0-17.5); Lymphocytes # (A) 1.4 k/uL (1.0-4.8); Lymphocytes % (A) 19 %; MCH 29.3 pg (25.0-35.0); MCHC 34.6 g/dL (31.0-37.0); MCV 84.8 fL (80.0-100.0); Mean Platelet Volume 8.6; Monocytes # (A) 0.4 k/uL (0-1.0); Monocytes % (A) 6 %; Neutrophils % (A) 69 %; Platelet Count 201 k/uL (150-450); RBC 5.14 m/uL (4.30-5.90); RDW 13.1 % (11.5-15.5); WBC 7.3 k/uL (3.8-10.6)
--- NOTE | 2022-07-02 07:54 | CT ---
EXAMINATION TYPE: CT brain wo con CT DLP: 1099.4 mGycm, Automated exposure control for dose reduction was used. DATE OF EXAM: 07/02/2022 7:47 AM COMPARISON: CT brain 06/09/2022. CLINICAL INDICATION:Male, 81 years old with history of Headache, acute, normal neuro exam, SHEPARD TECHNIQUE: Brain: Multiple axial CT images of the brain were obtained without IV contrast. Coronal and sagittal reformats reviewed. FINDINGS: Brain: Extra-axial spaces: No abnormal extra-axial fluid collections. Ventricular system: Within normal limits Cerebral parenchyma: No acute intraparenchymal hemorrhage or mass effect. The chapman-white junction is well differentiated. Scattered hypoattenuating areas are seen within the white matter. Cerebral vol ume loss. Cerebellum: Unremarkable. Mass effect: No evidence of midline shift. Intracranial vasculature: Atherosclerotic calcifications of the intracranial vessels. Soft tissues: Normal. Calvarium/osseous structures: No depressed skull fracture. Paranasal sinuses and mastoid air cells: The mastoid air cells are clear. Minimal mucosal thickening of the bilateral maxillary sinuses. Visualized orbits: Bilateral aphakia IMPRESSION: 1. No acute intracranial process or significant change from prior. 2. Nonspecific white matter changes, likely secondary to chronic small vessel ischemic disease.
--- NOTE | 2022-07-02 08:05 | XR ---
EXAMINATION TYPE: XR chest 2V DATE OF EXAM: 07/02/2022 7:56 AM COMPARISON: Chest radiograph 09/11/2020, nuclear medicine bone scan 01/15/2022. TECHNIQUE: XR chest 2V Portable AP radiograph of the chest. CLINICAL INDICATION:Male, 81 years old with history of Chest Pain; FINDINGS: Lungs/Pleura: No pneumothorax or pleural effusion. No focal consolidation. Pulmonary vascularity: Unremarkable. Heart/mediastinum: Cardiomediastinal silhouette is unremarkable. Atherosclerotic calcifications are seen in the aorta. Musculoskeletal: No acute osseous pathology. Postsurgical changes from cervical fusion. Multilevel de generative changes of visualized spine. Multiple sclerotic foci demonstrated throughout the visualize d osseous structures. IMPRESSION: 1. No acute cardiopulmonary disease/process. 2. Diffuse osseous sclerotic foci consistent with metastatic disease as demonstrated on prior nuclea [facility] bone scan 01/15/2022.
[2022-07-02 08:08] LABS: Partial Thromboplastin Time 23.2 sec (22.0-30.0); Prothrombin Time 10.6 sec (9.0-12.0)
[2022-07-02 08:43] LABS: Albumin 4.2 g/dL (3.5-5.0); Calcium 9.4 mg/dL (8.4-10.2); Magnesium 1.5 mg/dL (1.6-2.3); Total Bilirubin 1.1 mg/dL (0.2-1.3); Total Protein 6.9 g/dL (6.3-8.2)
[2022-07-02 08:54] LABS: Potassium 4.2 mmol/L (3.5-5.1)
[2022-07-02] MEDS ORDERED: MAGNESIUM SULFATE-D5W PMX 1 GM in DEXTROSE/WATER 1 100ML.BAG IVPB ONE (09:26)
[2022-07-02] MEDS ORDERED: SODIUM CHLORIDE 0.9% 500 ML 500 ML IV STA (09:27)
[2022-07-02] MEDS ORDERED: KETOROLAC 15 MG/ML 1 ML VIAL IVP STA (09:30)
[2022-07-02] MEDS ORDERED: fentaNYL (PF) 50 MCG/ML 2 ML AMP IV STA (10:03)
[2022-07-02 11:43] VITALS: BP 170/98; PULSE 89; TEMP 97.8
== END 2022-07-02 11:39 | disposition home or self-care (01) ==
LOC: EC 06:46
DX: R07.89 Other chest pain (principal); M79.12 Myalgia of auxiliary muscles, head and neck; R51.9 Headache, unspecified; Z86.69 Personal history of other diseases of the nervous system and sense organs; I10 Essential (primary) hypertension; I48.91 Unspecified atrial fibrillation; E11.9 Type 2 diabetes mellitus without complications; E78.5 Hyperlipidemia, unspecified; M19.90 Unspecified osteoarthritis, unspecified site; Z87.891 Personal history of nicotine dependence; Z79.82 Long term (current) use of aspirin; Z79.4 Long term (current) use of insulin; Z79.899 Other long term (current) drug therapy
CPT/HCPCS: 36415; 93005; 85379; 83880; 80053; 83690; 83735; 84484; 85025; 85610; 85730; 71046; 70450; 99284; 96365; 96366; 96375 ×2; J3010; J3475; J1885

== ENCOUNTER → 2022-08-27 | Outpatient (CLI) | payer MEDICARE ==
--- NOTE | 2022-08-27 14:00 | NM ---
EXAMINATION TYPE: NM bone scan whole body DATE OF EXAM: 08/27/2022 COMPARISON: 01/15/2022 HISTORY: Prostate cancer Delayed whole-body scanning was performed following the injection of 21.7 mCi Tc 99m MDP. Images acq uired 3.25 hours post injection. FINDINGS: Suspicious for metastases: There is abnormal uptake in seen involving the bilateral rib cage, cervica l spine, thoracic spine, and lower lumbar spine. Findings are similar to prior exam. Abnormal uptake involving the left sacrum, left inferior pubic ramus, right acetabulum, and right gre ater trochanter of the femur is stable. Abnormal uptake involving the proximal right humerus stable. Nonsuspicious uptake: Abnormal uptake involving the hands, feet and shoulders most available post art hritic changes. Photopenic defects involving the knees and mild intensity uptake surrounding the photopenic defects c ompatible with postsurgical changes. IMPRESSION: 1. Stable appearing bone scan suggestive of bilateral fairly diffuse osseous metastases
== END | disposition home or self-care (01) ==
LOC: RADNMMAIN 09:29
PROVIDERS: ATTEND Urology
DX: C61 Malignant neoplasm of prostate (principal)
CPT/HCPCS: 78306; A9503

== ENCOUNTER 2023-01-14 17:52 | Emergency (ER) | payer MEDICARE ==
[2023-01-14 18:36] VITALS: TEMP 98.6
[2023-01-14] MEDS ORDERED: SODIUM CHLORIDE 0.9% 500 ML 500 ML IV STA ×2 (19:03→20:46)
[2023-01-14] MEDS ORDERED: hydrALAZINE HCL 20 MG/ML 1 ML VIAL IVP STA ×2 (19:05→19:59)
[2023-01-14 19:56] LABS: Basophils % (A) 0 %; Eosinophils # (A) 0.1 k/uL (0-0.7); Eosinophils % (A) 2 %; HCT 45.8 % (39.0-53.0); HGB 15.7 gm/dL (13.0-17.5); Lymphocytes # (A) 1.4 k/uL (1.0-4.8); Lymphocytes % (A) 21 %; MCH 28.8 pg (25.0-35.0); MCHC 34.3 g/dL (31.0-37.0); MCV 83.8 fL (80.0-100.0); Monocytes # (A) 0.3 k/uL (0-1.0); Monocytes % (A) 5 %; Neutrophils # (A) 4.4 k/uL (1.3-7.7); Neutrophils % (A) 69 %; Platelet Count 204 k/uL (150-450); RBC 5.47 m/uL (4.30-5.90); RDW 12.6 % (11.5-15.5); WBC 6.4 k/uL (3.8-10.6)
--- NOTE | 2023-01-14 19:57 | CT ---
EXAMINATION TYPE: CT brain wo con DATE OF EXAM: 01/14/2023 COMPARISON: 07/02/2022 INDICATION: headaches DLP: 1118.4 mGycm, Automated exposure control for dose reduction was used. CONTRAST: None CT of the brain is performed utilizing 3 mm thick sections through the posterior fossa and 3 mm thick sections through the remaining calvarium. Study is performed within 24 hours of arrival to the hosp [facility]. No abnormal hyperdensity is present to suggest an acute intracranial hemorrhage. No mass lesion is evident. No acute infarcts are evident. Minimal chronic appearing periventricular white matter changes are pre sent. Ventricles and sulci are appropriate for the patient age. Paranasal sinuses and mastoid air cells within the [id number] are clear. IMPRESSIONS: 1. No acute intracranial process. Follow-up MRI can be performed as clinically indicated
[2023-01-14 20:03] LABS: Prothrombin Time 10.8 sec (9.0-12.0)
--- NOTE | 2023-01-14 20:18 | XR ---
EXAMINATION TYPE: XR chest 1V portable DATE OF EXAM: 01/14/2023 COMPARISON: 07/02/2022 INDICATION: Hypertension chest pain TECHNIQUE: Single frontal view of the chest is obtained. FINDINGS: The heart size is normal. The pulmonary vasculature is normal. The lungs are clear. IMPRESSION: 1. No acute pulmonary process.
[2023-01-14 20:27] LABS: ALT 42 U/L (4-49); AST 42 U/L (17-59); African American GFR (CKD) >90 (>60 ml/min/1.73 sqM); Albumin 4.4 g/dL (3.5-5.0); Alkaline Phosphatase 139 U/L (38-126); Anion Gap 10 mmol/L; Blood Urea Nitrogen 11 mg/dL (9-20); Calcium 9.8 mg/dL (8.4-10.2); Carbon Dioxide 27 mmol/L (22-30); Chloride 101 mmol/L (98-107); Glucose 150 mg/dL (74-99); Magnesium 1.5 mg/dL (1.6-2.3); Non-African American GFR(CKD) 81 (>60 ml/min/1.73 sqM); Potassium 3.6 mmol/L (3.5-5.1); Sodium 138 mmol/L (137-145); Total Protein 7.4 g/dL (6.3-8.2)
[2023-01-14] MEDS ORDERED: PROCHLORPERAZINE INJ 10 MG/2 ML VIAL IVP STA (20:46)
[2023-01-14] MEDS ORDERED: MAGNESIUM SULFATE-D5W PMX 1 GM in DEXTROSE/WATER 1 100ML.BAG IVPB ONE (20:46)
[2023-01-14] MEDS ORDERED: KETOROLAC 15 MG/ML 1 ML VIAL IVP STA (20:46)
[2023-01-14] MEDS ORDERED: diphenhydrAMINE 50 MG/ML 1 ML VIAL IVP STA (21:35)
[2023-01-14] MEDS ORDERED: methylPREDNISolone SOD SUCCI 40 MG/ML 1 ML VIAL IV STA (21:35)
--- NOTE | 2023-01-14 21:48 | ED ---
General Adult HPI <Prem Garza - Last Filed: 01/14/23 23:04> - General Source: patient, RN notes reviewed, old records reviewed Mode of arrival: ambulatory Limitations: no limitations <Parker Durham - Last Filed: 01/14/23 23:13> - General Chief complaint: Recheck/Abnormal Lab/Rx Stated complaint: headache Time Seen by Provider: 01/14/23 18:53 - History of Present Illness Initial comments: Patient is an 82-year-old male with past medical history remarkable for poorly controlled hypertension, A. fib on blood thinner, diabetes who presents emergency Department complaining of a headache as well as increased blood pressure. Does have a history of poorly controlled blood pressure states his blood pressure will occasionally be in the 200s systolics at home. Asis been a little more persistent over the last 2 days associated with a mild right-sided headache. 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 No acute change there. Denies chest pain or shortness of breath. Has no other acute complaints at this time. States he is compliant with his medications. Denies any photophobia or phonophobia. Denies any new weakness or sensory deficits. Presents over concern for his headache and hypertension. (Parker Durham) - Related Data Home Medications Medication Instructions Recorded Confirmed Aspirin EC [Ecotrin Low Dose] 81 mg PO DAILY 07/02/22 07/02/22 Cetirizine HCl [Zyrtec] 10 mg PO DAILY 07/02/22 07/02/22 Enzalutamide [Xtandi] 120 mg PO DAILY 07/02/22 07/02/22 Ergocalciferol [Vitamin D2 (1250 1,250 mcg PO TH 07/02/22 07/02/22 Mcg = 27889 Iu)] Ferrous Sulfate [Feosol] 325 mg PO DAILY 07/02/22 07/02/22 Gabapentin 300 mg PO BID 07/02/22 07/02/22 Insulin Aspart [NovoLOG Flexpen] 20 units SQ AC-TID 07/02/22 07/02/22 Insulin Glargine,Hum.rec.anlog 60 units SQ DAILY 07/02/22 07/02/22 [Lantus Solostar Pen] Omeprazole [PriLOSEC] 20 mg PO DAILY 07/02/22 07/02/22 amLODIPine [Norvasc] 10 mg PO DAILY 07/02/22 07/02/22 Allergies Allergy/AdvReac Type Severity Reaction Status Date / Time No Known Allergies Allergy Verified 01/14/23 18:36 Review of Systems ROS Other: All systems not noted in ROS Statement are negative. <Prem Garza - Last Filed: 01/14/23 23:04> ROS Other: All systems not noted in ROS Statement are negative. <Parker Durham - Last Filed: 01/14/23 23:13> ROS Statement: Those systems with pertinent positive or pertinent negative responses have been documented in the HPI. Review of Systems: CONST: Denies fever EYES: Denies blurry vision ENT: Denies nasal congestion C/V: Denies Chest pain RESP: Denies shortness of breath GI: Denies abdominal pain : Denies dysuria SKIN: Denies rash. MSK: Denies joint pain. NEURO: Endorses headache (Parker Durham) Past Medical History Past Medical History: Atrial Fibrillation, Diabetes Mellitus, Hyperlipidemia, Hypertension, Osteoarthritis (OA), Sleep Apnea/CPAP/BIPAP Additional Past Medical History / Comment(s): limit of movement rt arm History of Any Multi-Drug Resistant Organisms: None Reported Past Surgical History: Cardiac Ablation, Cholecystectomy, Heart Catheterization, Joint Replacement Additional Past Surgical History / Comment(s): ROSS KNEE ARTHROPLASTY, ross cataracts Past Anesthesia/Blood Transfusion Reactions: No Reported Reaction Past Psychological History: No Psychological Hx Reported Smoking Status: Former smoker Past Alcohol Use History: None Reported Past Drug Use History: None Reported - Past Family History Mother Additional Family Medical History / Comment(s): MOM IS STILL ALIVE AT AGE 98 HAS Father History Unknown: Yes Brother(s) Family Medical History: Cancer <Parker Durham - Last Filed: 01/14/23 23:13> General Exam Limitations: no limitations <Parker Durham - Last Filed: 01/14/23 23:13> - General Exam Comments Initial Comments: General: Appears in no acute distress. HEAD: Normal with no signs of head trauma. EYES: PERRLA, EOMI, conjunctiva normal, no discharge. Pupils are 3 mm and equal bilaterally. ENT: Hearing grossly intact, normal oropharynx. RESPIRATORY: Clear breath sounds bilaterally. No wheezes, rales, or rhonchi. C/V: Regular rate and rhythm. S1 and S2 auscultated, peripheral pulses 2+ and intact throughout ABD: Abd is soft, nontender, nondistended EXT: Normal range of motion, no obvious deformity SKIN: No rashes or lesions observed on exposed skin. NEURO: Alert and oriented 4. Left-sided Russo's palsy facial weakness but otherwise no acute neurological deficits. NIH is 0 otherwise GCS of 15. (Parker Durham) Course Vital Signs 01/14/23 01/14/23 01/14/23 18:31 20:02 21:12 Temperature 98.6 F Pulse Rate 77 81 102 H Respiratory 18 12 15 Rate Blood Pressure 218/119 217/121 167/98 O2 Sat by Pulse 98 95 Oximetry 01/14/23 22:02 Temperature Pulse Rate 96 Respiratory 16 Rate Blood Pressure 173/93 O2 Sat by Pulse 97 Oximetry Medical Decision Making - Lab Data Result diagrams: 01/14/23 19:40 01/14/23 19:40 <Prem Garza - Last Filed: 01/14/23 23:04> - Lab Data Result diagrams: 01/14/23 19:40 01/14/23 19:40 - EKG Data -: EKG Interpreted by Me <Parker Durham - Last Filed: 01/14/23 23:13> - Medical Decision Making Was pt. sent in by a medical professional or institution (ANA Nunez, MEDICAL SECRETARY TEACHER, urgent care, hospital, or shelter...) When possible be specific @ -No Did you speak to anyone other than the patient for history (EMS, parent, family, police, friend...)? What history was obtained from this source @ -No Did you review nursing and triage notes (agree or disagree)? Why? @ -I reviewed and agree with nursing and triage notes Were old charts reviewed (outside hosp., previous admission, EMS record, old EKG, old radiological studies, urgent care reports/EKG's, shelter records)? Report findings @ -Old charts reviewed from prior ER visits in June and May 2022 including EKG. Differential Diagnosis (chest pain, altered mental status, abdominal pain women, abdominal pain men, vaginal bleeding, weakness, fever, dyspnea, syncope, headache, dizziness, GI bleed, back pain, seizure, CVA, palpatations, mental health, musculoskeletal)? @ -Differential Headache: Migraine, tension, cluster, carbon monoxide, central venous thrombosis, pension karma temporal arteritis, acute closure glaucoma, intercranial hemorrhage, mastoiditis, sinusitis, head injury, this is not meant to be an all-inclusive list. EKG interpreted by me (3pts min.). @ -As above X-rays interpreted by me (1pt min.). @ -Chest x-ray shows no obvious acute cardiopulmonary process. CT interpreted by me (1pt min.). @ -CT brain reveals no obvious acute intracranial process. U/S interpreted by me (1pt. min.). @ -None done What testing was considered but not performed or refused? (CT, X-rays, U/S, labs)? Why? @ -None What meds were considered but not given or refused? Why? @ -None Did you discuss the management of the patient with other professionals (professionals i.e. DrMohinder, PA, MEDICAL SECRETARY TEACHER, lab, RT, psych nurse, social science instructor, nutritionalist, teacher, attendance officer, director of casework department)? Give summary @ -No Was smoking cessation discussed for >3mins.? @ -No Was critical care preformed (if so, how long)? @ -No Were there social determinants of health that impacted care today? How? (Homelessness, low income, unemployed, alcoholism, drug addiction, transportation, low edu. Level, literacy, decrease access to med. care, half-way, rehab)? @ -No Was there de-escalation of care discussed even if they declined (Discuss DNR or withdrawal of care, Hospice)? DNR status @ -No What co-morbidities impacted this encounter? (DM, HTN, Smoking, COPD, CAD, Cancer, CVA, ARF, Chemo, Hep., AIDS, mental health diagnosis, sleep apnea, morbid obesity)? @ -Poorly controlled hypertension Was patient admitted / discharged? Hospital course, mention meds given and route, prescriptions, significant lab abnormalities, going to OR and other pertinent info. @ -Based on the patient's presentation physical exam, presents complaining of hypertension and headache. Blood pressure is 218/119 in triage. Headache is not the worst headache of his life. We will obtain CT brain as patient is on blood thinners with this headache and hypertension. We'll also obtain cardiac workup. He'll be sent likely treated for his hypertension with IV hydralazine as well as a small fluid bolus. Patient was in agreement this plan. Vital signs otherwise within acceptable limits other than the hypertension. EKG showed no signs of acute ischemia. Imaging is unremarkable. Labs are remarkable for hypomagnesemia which will be replenished with IV magnesium. Troponin undetectable. Remainder of labs are within acceptable limits. Following 2 doses of hydralazine, patient's blood pressure is improved to 167/98. Is still complaining of the right-sided headache. We'll provide him with IV Toradol, Compazine, as well as additional fluids and reevaluate. He was in agreement this plan. On reevaluation he still complaining of the headache and therefore he will be provided with IV Benadryl, Symmetrel, and reevaluated. He was in agreement this plan. On reevaluation, patient is feeling improved. He'll be discharged home at this time. Strict return precautions discussed. Blood pressure remains within acceptable limits. Discussed importance of blood pressure control and recommended follow-up with his PCP. I instructed the patient to follow up with their PCP in the next 1-3 days. I explained that the patient should return to the emergency department if they experience any worsening symptoms. Strict return precautions were discussed with the patient. The patient expressed understanding of these instructions. I answered all questions that the patient had. The patient was discharged home in good condition with their prescriptions and follow up information. Undiagnosed new problem with uncertain prognosis? @ -No Drug Therapy requiring intensive monitoring for toxicity (Heparin, Nitro, Insulin, Cardizem)? @ -No Were any procedures done? @ -No Diagnosis/symptom? @ -Poorly controlled hypertension, headache Acute, or Chronic, or Acute on Chronic? @ -Acute on chronic Uncomplicated (without systemic symptoms) or Complicated (systemic symptoms)? @ -Complicated Side effects of treatment? @ -No Exacerbation, Progression, or Severe Exacerbation? @ -No Poses a threat to life or bodily function? How? (Chest pain, [place], [place], pneumonia, PE, COPD, DKA, ARF, appy, cholecystitis, CVA, Diverticulitis, Homicidal, Suicidal, threat to staff... and all critical care pts) @ -No (Parker Durham) - Lab Data Lab Results 05/30/23 05/30/23 05/30/23 Range/Units 19:40 19:40 19:40 WBC 6.4 (3.8-10.6) k/uL RBC 5.47 (4.30-5.90) m/uL Hgb 15.7 (13.0-17.5) gm/dL Hct 45.8 (39.0-53.0) % MCV 83.8 (80.0-100.0) fL MCH 28.8 (25.0-35.0) pg MCHC 34.3 (31.0-37.0) g/dL RDW 12.6 (11.5-15.5) % Plt Count 204 (150-450) k/uL MPV 8.0 Neutrophils % 69 % Lymphocytes % 21 % Monocytes % 5 % Eosinophils % 2 % Basophils % 0 % Neutrophils # 4.4 (1.3-7.7) k/uL Lymphocytes # 1.4 (1.0-4.8) k/uL Monocytes # 0.3 (0-1.0) k/uL Eosinophils # 0.1 (0-0.7) k/uL Basophils # 0.0 (0-0.2) k/uL PT (9.0-12.0) sec INR (<1.2) APTT (22.0-30.0) sec Sodium 138 (137-145) mmol/L Potassium 3.6 (3.5-5.1) mmol/L Chloride 101 (98-107) mmol/L Carbon Dioxide 27 (22-30) mmol/L Anion Gap 10 mmol/L BUN 11 (9-20) mg/dL Creatinine 0.87 (0.66-1.25) mg/dL Est GFR (CKD-EPI)AfAm >90 (>60 ml/min/1.73 sqM) Est GFR (CKD-EPI)NonAf 81 (>60 ml/min/1.73 sqM) Glucose 150 H (74-99) mg/dL Calcium 9.8 (8.4-10.2) mg/dL Magnesium 1.5 L (1.6-2.3) mg/dL Total Bilirubin 1.0 (0.2-1.3) mg/dL AST 42 (17-59) U/L ALT 42 (4-49) U/L Alkaline Phosphatase 139 H (38-126) U/L Troponin I <0.012 (0.000-0.034) ng/mL Total Protein 7.4 (6.3-8.2) g/dL Albumin 4.4 (3.5-5.0) g/dL 01/14/23 Range/Units 19:40 WBC (3.8-10.6) k/uL RBC (4.30-5.90) m/uL Hgb (13.0-17.5) gm/dL Hct (39.0-53.0) % MCV (80.0-100.0) fL MCH (25.0-35.0) pg MCHC (31.0-37.0) g/dL RDW (11.5-15.5) % Plt Count (150-450) k/uL MPV Neutrophils % % Lymphocytes % % Monocytes % % Eosinophils % % Basophils % % Neutrophils # (1.3-7.7) k/uL Lymphocytes # (1.0-4.8) k/uL Monocytes # (0-1.0) k/uL Eosinophils # (0-0.7) k/uL Basophils # (0-0.2) k/uL PT 10.8 (9.0-12.0) sec INR 1.0 (<1.2) APTT 23.0 (22.0-30.0) sec Sodium (137-145) mmol/L Potassium (3.5-5.1) mmol/L Chloride (98-107) mmol/L Carbon Dioxide (22-30) mmol/L Anion Gap mmol/L BUN (9-20) mg/dL Creatinine (0.66-1.25) mg/dL Est GFR (CKD-EPI)AfAm (>60 ml/min/1.73 sqM) Est GFR (CKD-EPI)NonAf (>60 ml/min/1.73 sqM) Glucose (74-99) mg/dL Calcium (8.4-10.2) mg/dL Magnesium (1.6-2.3) mg/dL Total Bilirubin (0.2-1.3) mg/dL AST (17-59) U/L ALT (4-49) U/L Alkaline Phosphatase (38-126) U/L Troponin I (0.000-0.034) ng/mL Total Protein (6.3-8.2) g/dL Albumin (3.5-5.0) g/dL - EKG Data EKG Comments: 12-lead Electrocardiogram Interpretation Note EKG was reviewed and interpreted by myself. 12-lead ECG performed at 1853 is interpreted by me as revealing normal sinus rhythm at a rate of 73 beats per minute. Left axis deviation. WA interval is 175 ms, QRS duration is 90 ms, QTc is 403 ms.. There were no ST or T wave abnormalities to suggest myocardial ischemia or injury. R wave progression across the precordium was satisfactory. By my interpretation this EKG is non-diagnostic for acute ischemia. (Parker Durham) Disposition Is patient prescribed a controlled substance at d/c from ED?: No Time of Disposition: 23:00 <Prem Garza - Last Filed: 01/14/23 23:04> Is patient prescribed a controlled substance at d/c from ED?: No <Parker Durham - Last Filed: 01/14/23 23:13> Clinical Impression: Uncontrolled hypertension, Headache, Hypomagnesemia Disposition: HOME SELF-CARE Condition: Good Instructions (If sedation given, give patient instructions): Hypertension (ED) Referrals: Brown Diaz DO [Primary Care Provider] - 1-2 days
[2023-01-14 22:03] VITALS: BP 173/93; PULSE 96; RESP 16
== END 2023-01-14 23:36 | disposition home or self-care (01) ==
LOC: EC 17:52
DX: I10 Essential (primary) hypertension (principal); E83.42 Hypomagnesemia; E11.36 Type 2 diabetes mellitus with diabetic cataract; I48.91 Unspecified atrial fibrillation; Z79.4 Long term (current) use of insulin; Z79.82 Long term (current) use of aspirin; Z79.899 Other long term (current) drug therapy; Z87.891 Personal history of nicotine dependence; Z90.49 Acquired absence of other specified parts of digestive tract
CPT/HCPCS: 36415; 93005; 80053; 83735; 84484; 85025; 85610; 85730; 71045; 70450; 99285; 96365; 96375 ×5; 96376; J0360; J1200; J0780; J2920; J3475; J1885

== ENCOUNTER → 2023-02-19 | Outpatient (CLI) | payer MEDICARE ==
[2023-02-19 16:14] LABS: Testosterone <10.00 ng/dL (86.98-780.10)
== END | disposition home or self-care (01) ==
LOC: LAB 07:29
PROVIDERS: ATTEND Urology
DX: C61 Malignant neoplasm of prostate (principal)
CPT/HCPCS: 84153; 84403

== ENCOUNTER 2023-03-27 06:11 | Emergency (ER) | payer MEDICARE ==
[2023-03-27 06:20] VITALS: TEMP 98.4
--- NOTE | 2023-03-27 07:01 | ED ---
Male Urogenital HPI - General Chief complaint: Urogenital Stated complaint: Pain Back and Abd Time Seen by Provider: 03/27/23 06:21 Source: patient, RN notes reviewed Mode of arrival: ambulatory Limitations: no limitations - History of Present Illness Initial comments: 82-year-old male presents emergency Department chief complaint of difficulty urinating. Patient states has not been able to urinate since yesterday. He states his feeling pressure in his lower abdomen his back. He denies any prior prostate issues. Denies fevers or chills no chest pain or shortness breath. Patient noted be hypertensive states that his been dealing with cardiology saw his assessment nurse practitioner yesterday he was switched to new medications. Patient denies any other associated symptoms. - Related Data Home Medications Medication Instructions Recorded Confirmed Aspirin EC [Ecotrin Low Dose] 81 mg PO DAILY 07/02/22 07/02/22 Cetirizine HCl [Zyrtec] 10 mg PO DAILY 07/02/22 07/02/22 Enzalutamide [Xtandi] 120 mg PO DAILY 07/02/22 07/02/22 Ergocalciferol [Vitamin D2 (1250 1,250 mcg PO TH 07/02/22 07/02/22 Mcg = 67753 Iu)] Ferrous Sulfate [Feosol] 325 mg PO DAILY 07/02/22 07/02/22 Gabapentin 300 mg PO BID 07/02/22 07/02/22 Insulin Aspart [NovoLOG Flexpen] 20 units SQ AC-TID 07/02/22 07/02/22 Insulin Glargine,Hum.rec.anlog 60 units SQ DAILY 07/02/22 07/02/22 [Lantus Solostar Pen] Omeprazole [PriLOSEC] 20 mg PO DAILY 07/02/22 07/02/22 amLODIPine [Norvasc] 10 mg PO DAILY 07/02/22 07/02/22 Previous Rx's Medication Instructions Recorded Tamsulosin [Flomax] 0.4 mg PO DAILY #7 cap 03/27/23 Allergies Allergy/AdvReac Type Severity Reaction Status Date / Time No Known Allergies Allergy Verified 03/27/23 06:17 Review of Systems ROS Statement: Those systems with pertinent positive or pertinent negative responses have been documented in the HPI. ROS Other: All systems not noted in ROS Statement are negative. Past Medical History Past Medical History: Atrial Fibrillation, Diabetes Mellitus, Hyperlipidemia, Hypertension, Osteoarthritis (OA), Sleep Apnea/CPAP/BIPAP Additional Past Medical History / Comment(s): limit of movement rt arm History of Any Multi-Drug Resistant Organisms: None Reported Past Surgical History: Cardiac Ablation, Cholecystectomy, Heart Catheterization, Joint Replacement Additional Past Surgical History / Comment(s): ROSS KNEE ARTHROPLASTY, ross cataracts Past Anesthesia/Blood Transfusion Reactions: No Reported Reaction Past Psychological History: No Psychological Hx Reported Smoking Status: Former smoker Past Alcohol Use History: None Reported Past Drug Use History: None Reported - Past Family History Mother Additional Family Medical History / Comment(s): MOM IS STILL ALIVE AT AGE 98 HAS Father History Unknown: Yes Brother(s) Family Medical History: Cancer General Exam Limitations: no limitations General appearance: alert, in no apparent distress Head exam: Present: atraumatic, normocephalic, normal inspection Eye exam: Present: normal appearance, PERRL, EOMI. Absent: scleral icterus, conjunctival injection, periorbital swelling ENT exam: Present: normal exam, normal oropharynx, mucous membranes moist Neck exam: Present: normal inspection, full ROM. Absent: tenderness, meni ngismus, lymphadenopathy Respiratory exam: Present: normal lung sounds bilaterally. Absent: respiratory distress, wheezes, rales, rhonchi, stridor Cardiovascular Exam: Present: regular rate, normal rhythm, normal heart sounds. Absent: systolic murmur, diastolic murmur, rubs, gallop, clicks GI/Abdominal exam: Present: soft, tenderness, normal bowel sounds. Absent: distended, guarding, rebound, rigid Back exam: Absent: CVA tenderness (R), CVA tenderness (L) Neurological exam: Present: alert Course Vital Signs 03/27/23 06:17 Temperature 98.4 F Pulse Rate 106 H Respiratory 18 Rate Blood Pressure 219/123 O2 Sat by Pulse 98 Oximetry Medical Decision Making - Medical Decision Making Was pt. sent in by a medical professional or institution (, PA, CLINICAL STUDY MANAGER, urgent care, hospital, or penitentiary...) When possible be specific @ -No Did you speak to anyone other than the patient for history (EMS, parent, family, police, friend...)? What history was obtained from this source @ -No Did you review nursing and triage notes (agree or disagree)? Why? @ -I reviewed and agree with nursing and triage notes Were old charts reviewed (outside hosp., previous admission, EMS record, old EKG, old radiological studies, urgent care reports/EKG's, penitentiary records)? Report findings @ -No old charts were reviewed Differential Diagnosis (chest pain, altered mental status, abdominal pain women, abdominal pain men, vaginal bleeding, weakness, fever, dyspnea, syncope, headache, dizziness, GI bleed, back pain, seizure, CVA, palpatations, mental health, musculoskeletal)? @ -Urinary tract infection, UTI EKG interpreted by me (3pts min.). @ -None X-rays interpreted by me (1pt min.). @ -None done CT interpreted by me (1pt min.). @ -None done U/S interpreted by me (1pt. min.). @ -None done What testing was considered but not performed or refused? (CT, X-rays, U/S, labs)? Why? @ -None What meds were considered but not given or refused? Why? @ -None Did you discuss the management of the patient with other professionals (professionals i.e. , PA, CLINICAL STUDY MANAGER, lab, RT, psych nurse, manager social responsibility, shirt turner, teacher, president and chief executive officer, case supervisor)? Give summary @ -No Was smoking cessation discussed for >3mins.? @ -No Was critical care preformed (if so, how long)? @ -No Were there social determinants of health that impacted care today? How? (Homelessness, low income, unemployed, alcoholism, drug addiction, transportation, low edu. Level, literacy, decrease access to med. care, penitentiary, rehab)? @ -No Was there de-escalation of care discussed even if they declined (Discuss DNR or withdrawal of care, Hospice)? DNR status @ -No What co-morbidities impacted this encounter? (DM, HTN, Smoking, COPD, CAD, Cancer, CVA, ARF, Chemo, Hep., AIDS, mental health diagnosis, sleep apnea, morbid obesity)? @ -None Was patient admitted / discharged? Hospital course, mention meds given and route, prescriptions, significant lab abnormalities, going to OR and other pertinent info. @ -discharge patient had urinary retention Gonzales catheter was placed 950 mL were removed of urine. Patient's urinalysis shows hematuria more likely from catheter. Patient has no dysuria urine culture was obtained patient will follow-up with urology and was placed on Flomax. Undiagnosed new problem with uncertain prognosis? @ -No Drug Therapy requiring intensive monitoring for toxicity (Heparin, Nitro, Insulin, Cardizem)? @ -No Were any procedures done? @ -No Diagnosis/symptom? @ -Urinary retention Acute, or Chronic, or Acute on Chronic? @ -Acute Uncomplicated (without systemic symptoms) or Complicated (systemic symptoms)? @ -Uncomplicated Side effects of treatment? @ -No Exacerbation, Progression, or Severe Exacerbation? @ -No Poses a threat to life or bodily function? How? (Chest pain, [place], [place], pneumonia, PE, COPD, DKA, ARF, appy, cholecystitis, CVA, Diverticulitis, Homicidal, Suicidal, threat to staff... and all critical care pts) @ -No - Lab Data Lab Results 03/27/23 Range/Units 07:04 Urine Color Light Red Urine Appearance Clear (Clear) Urine pH 6.5 (5.0-8.0) Ur Specific [place] 1.020 (1.001-1.035) Urine Protein 3+ H (Negative) Urine Glucose (UA) 4+ H (Negative) Urine Ketones Negative (Negative) Urine Blood Large H (Negative) Urine Nitrite Negative (Negative) Urine Bilirubin Negative (Negative) Urine Urobilinogen <2.0 (<2.0) mg/dL Ur Leukocyte Esterase Negative (Negative) Urine RBC >182 H (0-5) /hpf Urine WBC 2 (0-5) /hpf Urine Mucus Rare H (None) /hpf Disposition Clinical Impression: Urinary retention Disposition: HOME SELF-CARE Condition: Stable Instructions (If sedation given, give patient instructions): Urinary Retention in Men (ED) Additional Instructions: Please return to the Emergency Department if symptoms worsen or any other concerns. Prescriptions: Tamsulosin [Flomax] 0.4 mg PO DAILY #7 cap Is patient prescribed a controlled substance at d/c from ED?: No Referrals: Brown Diaz DO [Primary Care Provider] - 1-2 days Man Franco MD [STAFF PHYSICIAN] - 1-2 days Time of Disposition: 07:55
[2023-03-27 07:28] LABS: Appearance,Urine Clear (Clear); Bilirubin,Urine Negative (Negative); Blood,Urine Large (Negative); Color,Urine Light Red; Glucose,Urine (UA) 4+ (Negative); Ketones,Urine Negative (Negative); Leukocyte Esterase,Urine Negative (Negative); Mucus,Urine Rare /hpf; Nitrite,Urine Negative (Negative); PH, Urine 6.5 (5.0-8.0); Protein,Urine 3+ (Negative); RBC,Urine >182 /hpf (0-5); Urobilinogen,Urine <2.0 mg/dL (<2.0); WBC,Urine 2 /hpf (0-5)
[2023-03-27 08:11] VITALS: BP 100/60; PULSE 85; RESP 17
== END 2023-03-27 08:17 | disposition home or self-care (01) ==
LOC: EC 06:11
DX: R33.9 Retention of urine, unspecified (principal); I10 Essential (primary) hypertension; I48.91 Unspecified atrial fibrillation; G47.30 Sleep apnea, unspecified; E11.9 Type 2 diabetes mellitus without complications; Z79.899 Other long term (current) drug therapy; Z79.82 Long term (current) use of aspirin; Z79.4 Long term (current) use of insulin; Z87.891 Personal history of nicotine dependence
CPT/HCPCS: 51702; 81001; 99284

== ENCOUNTER 2023-03-29 05:17 | Emergency (ER) | payer MEDICARE ==
[2023-03-29 05:20] VITALS: RESP 18; TEMP 98
[2023-03-29 06:55] LABS: Appearance,Urine Clear (Clear); Bilirubin,Urine Negative (Negative); Blood,Urine Large (Negative); Color,Urine Light Red; Glucose,Urine (UA) 4+ (Negative); Ketones,Urine Negative (Negative); Leukocyte Esterase,Urine Small (Negative); Mucus,Urine Rare /hpf; Nitrite,Urine Negative (Negative); PH, Urine 6.5 (5.0-8.0); Protein,Urine 3+ (Negative); RBC,Urine >182 /hpf (0-5); Specific Gravity,Urine 1.018 (1.001-1.035); Urobilinogen,Urine <2.0 mg/dL (<2.0); WBC,Urine 23 /hpf (0-5)
--- NOTE | 2023-03-29 07:07 | ED ---
Male Urogenital HPI - General Chief complaint: Urogenital Stated complaint: Catheter Malfunction Time Seen by Provider: 03/29/23 05:59 Source: patient, RN notes reviewed Mode of arrival: ambulatory Limitations: no limitations - History of Present Illness Initial comments: 82-year-old male presents emergency department to complaint of leg after working. Patient seen here a few days ago for urinary retention. Patient states that her has been some blood in the catheter. He states he feels pressure like he did prior to his catheter be in place. Patient denies any fevers or chills denies any flank pain patient does have history of prostate cancer. - Related Data Home Medications Medication Instructions Recorded Confirmed Aspirin EC [Ecotrin Low Dose] 81 mg PO DAILY 07/02/22 07/02/22 Cetirizine HCl [Zyrtec] 10 mg PO DAILY 07/02/22 07/02/22 Enzalutamide [Xtandi] 120 mg PO DAILY 07/02/22 07/02/22 Ergocalciferol [Vitamin D2 (1250 1,250 mcg PO TH 07/02/22 07/02/22 Mcg = 52968 Iu)] Ferrous Sulfate [Feosol] 325 mg PO DAILY 07/02/22 07/02/22 Gabapentin 300 mg PO BID 07/02/22 07/02/22 Insulin Aspart [NovoLOG Flexpen] 20 units SQ AC-TID 07/02/22 07/02/22 Insulin Glargine,Hum.rec.anlog 60 units SQ DAILY 07/02/22 07/02/22 [Lantus Solostar Pen] Omeprazole [PriLOSEC] 20 mg PO DAILY 07/02/22 07/02/22 amLODIPine [Norvasc] 10 mg PO DAILY 07/02/22 07/02/22 Previous Rx's Medication Instructions Recorded Tamsulosin [Flomax] 0.4 mg PO DAILY #7 cap 03/27/23 Sulfamethox-Tmp 800-160Mg [Bactrim 1 each PO Q12HR #20 tab 03/29/23 Ds] Allergies Allergy/AdvReac Type Severity Reaction Status Date / Time No Known Allergies Allergy Verified 03/29/23 05:18 Review of Systems ROS Statement: Those systems with pertinent positive or pertinent negative responses have been documented in the HPI. ROS Other: All systems not noted in ROS Statement are negative. Past Medical History Past Medical History: Atrial Fibrillation, Diabetes Mellitus, Hyperlipidemia, Hypertension, Osteoarthritis (OA), Sleep Apnea/CPAP/BIPAP Additional Past Medical History / Comment(s): limit of movement rt arm History of Any Multi-Drug Resistant Organisms: None Reported Past Surgical History: Cardiac Ablation, Cholecystectomy, Heart Catheterization, Joint Replacement Additional Past Surgical History / Comment(s): ROSS KNEE ARTHROPLASTY, ross cataracts Past Anesthesia/Blood Transfusion Reactions: No Reported Reaction Past Psychological History: No Psychological Hx Reported Smoking Status: Former smoker Past Alcohol Use History: None Reported Past Drug Use History: None Reported - Past Family History Mother Additional Family Medical History / Comment(s): MOM IS STILL ALIVE AT AGE 98 HAS Father History Unknown: Yes Brother(s) Family Medical History: Cancer General Exam Limitations: no limitations General appearance: alert, in no apparent distress Head exam: Present: atraumatic, normocephalic, normal inspection Eye exam: Present: normal appearance, PERRL, EOMI. Absent: scleral icterus, conjunctival injection, periorbital swelling ENT exam: Present: normal exam, mucous membranes moist Neck exam: Present: normal inspection. Absent: tenderness, meningismus, lymphadenopathy Respiratory exam: Present: normal lung sounds bilaterally. Absent: respiratory distress, wheezes, rales, rhonchi, stridor Cardiovascular Exam: Present: regular rate, normal rhythm, normal heart sounds. Absent: systolic murmur, diastolic murmur, rubs, gallop, clicks GI/Abdominal exam: Present: soft, tenderness, normal bowel sounds. Absent: distended, guarding, rebound, rigid Neurological exam: Present: alert Skin exam: Present: warm, dry, intact, normal color. Absent: rash Course Vital Signs 03/29/23 03/29/23 03/29/23 05:18 05:20 06:20 Temperature 98 F Pulse Rate 89 Respiratory 18 Rate Blood Pressure 207/108 209/106 210/121 O2 Sat by Pulse 98 Oximetry Medical Decision Making - Medical Decision Making Was pt. sent in by a medical professional or institution (, PA, SCIENTIFIC PROCESS OPERATOR, urgent care, hospital, or custodial...) When possible be specific @ -No Did you speak to anyone other than the patient for history (EMS, parent, family, police, friend...)? What history was obtained from this source @ -No Did you review nursing and triage notes (agree or disagree)? Why? @ -I reviewed and agree with nursing and triage notes Were old charts reviewed (outside hosp., previous admission, EMS record, old EKG, old radiological studies, urgent care reports/EKG's, custodial records)? Report findings @ -No old charts were reviewed Differential Diagnosis (chest pain, altered mental status, abdominal pain women, abdominal pain men, vaginal bleeding, weakness, fever, dyspnea, syncope, headache, dizziness, GI bleed, back pain, seizure, CVA, palpatations, mental health, musculoskeletal)? @ -Hematuria, Gonzales catheter complication, UTI EKG interpreted by me (3pts min.). @ -None X-rays interpreted by me (1pt min.). @ -None done CT interpreted by me (1pt min.). @ -None done U/S interpreted by me (1pt. min.). @ -None done What testing was considered but not performed or refused? (CT, X-rays, U/S, labs)? Why? @ -None What meds were considered but not given or refused? Why? @ -None Did you discuss the management of the patient with other professionals (professionals i.e. , PA, SCIENTIFIC PROCESS OPERATOR, lab, RT, psych nurse, rn social services, cross country coach, teacher, air defense control officer, pillowcase folder)? Give summary @ -No Was smoking cessation discussed for >3mins.? @ -No Was critical care preformed (if so, how long)? @ -No Were there social determinants of health that impacted care today? How? (Homelessness, low income, unemployed, alcoholism, drug addiction, transportation, low edu. Level, literacy, decrease access to med. care, fdc, rehab)? @ -No Was there de-escalation of care discussed even if they declined (Discuss DNR or withdrawal of care, Hospice)? DNR status @ -No What co-morbidities impacted this encounter? (DM, HTN, Smoking, COPD, CAD, Cancer, CVA, ARF, Chemo, Hep., AIDS, mental health diagnosis, sleep apnea, morbid obesity)? @ -Prostate Was patient admitted / discharged? Hospital course, mention meds given and route, prescriptions, significant lab abnormalities, going to OR and other pertinent info. @ -Discharged patient's Gonzales catheter was exchanged after irrigation failed. Patient has notable leg with him urine causing compilations. Patient does have increasing white cells with and urinalysis. Patient was started on antibiotics with follow-up at urology on Friday return parameters discussed. Patient remains to be hypertensive which this is been an ongoing issue dealing with cardiology he states he is asymptomatic and states that cardiology this pressure and they are working on changing his medications. Undiagnosed new problem with uncertain prognosis? @ -No Drug Therapy requiring intensive monitoring for toxicity (Heparin, Nitro, Insulin, Cardizem)? @ -No Were any procedures done? @ -No Diagnosis/symptom? @ -Gonzales catheter complication, hematuria, UTI, Acute, or Chronic, or Acute on Chronic? @ -Acute Uncomplicated (without systemic symptoms) or Complicated (systemic symptoms)? @ -Uncomplicated Side effects of treatment? @ -No Exacerbation, Progression, or Severe Exacerbation? @ -No Poses a threat to life or bodily function? How? (Chest pain, [place], [place], pneumonia, PE, COPD, DKA, ARF, appy, cholecystitis, CVA, Diverticulitis, Homicidal, Suicidal, threat to staff... and all critical care pts) @ -No - Lab Data Lab Results 03/29/23 Range/Units 06:08 Urine Color Light Red Urine Appearance Clear (Clear) Urine pH 6.5 (5.0-8.0) Ur Specific [place] 1.018 (1.001-1.035) Urine Protein 3+ H (Negative) Urine Glucose (UA) 4+ H (Negative) Urine Ketones Negative (Negative) Urine Blood Large H (Negative) Urine Nitrite Negative (Negative) Urine Bilirubin Negative (Negative) Urine Urobilinogen <2.0 (<2.0) mg/dL Ur Leukocyte Esterase Small H (Negative) Urine RBC >182 H (0-5) /hpf Urine WBC 23 H (0-5) /hpf Urine Mucus Rare H (None) /hpf Disposition Clinical Impression: Hematuria, Complication, blocked Gonzales catheter, UTI (urinary tract infection) Disposition: HOME SELF-CARE Condition: Stable Instructions (If sedation given, give patient instructions): Urinary Tract Infection in Men (ED) Additional Instructions: Please return to the Emergency Department if symptoms worsen or any other concerns. Prescriptions: Sulfamethox-Tmp 800-160Mg [Bactrim Ds] 1 each PO Q12HR #20 tab Is patient prescribed a controlled substance at d/c from ED?: No Referrals: Brown Diaz DO [Primary Care Provider] - 1-2 days Rakan Caldwell MD [STAFF PHYSICIAN] - 1-2 days Time of Disposition: 07:06
[2023-03-29] MEDS ORDERED: SODIUM CHLORIDE 0.9% 1,000 ML IV ONE (07:55)
[2023-03-29] MEDS ORDERED: hydrALAZINE HCL 20 MG/ML 1 ML VIAL IVP STA (08:05)
[2023-03-29 08:49] LABS: Basophils % (A) 1 %; Eosinophils # (A) 0.1 k/uL (0-0.7); Eosinophils % (A) 2 %; HCT 40.3 % (39.0-53.0); HGB 13.7 gm/dL (13.0-17.5); Lymphocytes # (A) 0.9 k/uL (1.0-4.8); Lymphocytes % (A) 13 %; MCH 28.8 pg (25.0-35.0); MCV 84.6 fL (80.0-100.0); Mean Platelet Volume 9.1; Monocytes # (A) 0.4 k/uL (0-1.0); Monocytes % (A) 5 %; Neutrophils # (A) 5.8 k/uL (1.3-7.7); Neutrophils % (A) 79 %; Platelet Count 122 k/uL (150-450); RBC 4.76 m/uL (4.30-5.90); RDW 13.4 % (11.5-15.5); WBC 7.3 k/uL (3.8-10.6)
[2023-03-29 09:06] LABS: ALT 30 U/L (4-49); AST 40 U/L (17-59); African American GFR (CKD) >90 (>60 ml/min/1.73 sqM); Alkaline Phosphatase 448 U/L (38-126); Anion Gap 14 mmol/L; Blood Urea Nitrogen 12 mg/dL (9-20); Calcium 9.3 mg/dL (8.4-10.2); Carbon Dioxide 18 mmol/L (22-30); Chloride 106 mmol/L (98-107); Glucose 200 mg/dL (74-99); Non-African American GFR(CKD) 86 (>60 ml/min/1.73 sqM); Potassium 4.3 mmol/L (3.5-5.1); Sodium 138 mmol/L (137-145); Total Bilirubin 0.8 mg/dL (0.2-1.3); Total Protein 6.9 g/dL (6.3-8.2)
[2023-03-29 10:10] VITALS: BP 187/127; PULSE 86
== END 2023-03-29 09:30 | disposition home or self-care (01) ==
LOC: EC 05:17
DX: T83.091A Other mechanical complication of indwelling urethral catheter, initial encounter (principal); N39.0 Urinary tract infection, site not specified; E11.9 Type 2 diabetes mellitus without complications; I10 Essential (primary) hypertension; Z79.4 Long term (current) use of insulin; Z79.82 Long term (current) use of aspirin; Z79.899 Other long term (current) drug therapy; Z87.891 Personal history of nicotine dependence; Y73.8 Miscellaneous gastroenterology and urology devices associated with adverse incidents, not elsewhere classified
CPT/HCPCS: 51702; 96374; 96361; 36415; 80053; 85025; 81001; 87086; 87077; 87186; 99284; J0360; 99283

== ENCOUNTER 2023-04-04 09:26 | Emergency (ER) | payer MEDICARE ==
--- NOTE | 2023-04-04 12:16 | ED ---
Male Urogenital HPI - General Chief complaint: Urogenital Stated complaint: Colostomy Bag Issue,Sent by PCP Time Seen by Provider: 04/04/23 09:51 Source: patient, RN notes reviewed Mode of arrival: ambulatory Limitations: no limitations - History of Present Illness Initial comments: ER-year-old male presents emergency Department from PCPs office for evaluation of hematuria. Patient has been seen twice for similar complaints. Patient has not follow-up with urology as directed. Patient does have a Prostate cancer. Patient denies any pain denies any current symptoms other than he is requesting a Gonzales catheter removed. Patient denies chest pain shortness breath headache dizziness fevers chills. - Related Data Home Medications Medication Instructions Recorded Confirmed Aspirin EC [Ecotrin Low Dose] 81 mg PO DAILY 07/02/22 07/02/22 Cetirizine HCl [Zyrtec] 10 mg PO DAILY 07/02/22 07/02/22 Enzalutamide [Xtandi] 120 mg PO DAILY 07/02/22 07/02/22 Ergocalciferol [Vitamin D2 (1250 1,250 mcg PO TH 07/02/22 07/02/22 Mcg = 83330 Iu)] Ferrous Sulfate [Feosol] 325 mg PO DAILY 07/02/22 07/02/22 Gabapentin 300 mg PO BID 07/02/22 07/02/22 Insulin Aspart [NovoLOG Flexpen] 20 units SQ AC-TID 07/02/22 07/02/22 Insulin Glargine,Hum.rec.anlog 60 units SQ DAILY 07/02/22 07/02/22 [Lantus Solostar Pen] Omeprazole [PriLOSEC] 20 mg PO DAILY 07/02/22 07/02/22 amLODIPine [Norvasc] 10 mg PO DAILY 07/02/22 07/02/22 Previous Rx's Medication Instructions Recorded Tamsulosin [Flomax] 0.4 mg PO DAILY #7 cap 03/27/23 Sulfamethox-Tmp 800-160Mg [Bactrim 1 each PO Q12HR #20 tab 03/29/23 Ds] Allergies Allergy/AdvReac Type Severity Reaction Status Date / Time No Known Allergies Allergy Verified 04/04/23 09:48 Review of Systems ROS Statement: Those systems with pertinent positive or pertinent negative responses have been documented in the HPI. ROS Other: All systems not noted in ROS Statement are negative. Past Medical History Past Medical History: Atrial Fibrillation, Diabetes Mellitus, Hyperlipidemia, Hypertension, Osteoarthritis (OA), Sleep Apnea/CPAP/BIPAP Additional Past Medical History / Comment(s): limit of movement rt arm History of Any Multi-Drug Resistant Organisms: None Reported Past Surgical History: Cardiac Ablation, Cholecystectomy, Heart Catheterization, Joint Replacement Additional Past Surgical History / Comment(s): ROSS KNEE ARTHROPLASTY, ross cataracts Past Anesthesia/Blood Transfusion Reactions: No Reported Reaction Past Psychological History: No Psychological Hx Reported Smoking Status: Former smoker Past Alcohol Use History: None Reported Past Drug Use History: None Reported - Past Family History Mother Additional Family Medical History / Comment(s): MOM IS STILL ALIVE AT AGE 98 HAS Father History Unknown: Yes Brother(s) Family Medical History: Cancer General Exam Limitations: no limitations General appearance: alert, in no apparent distress Head exam: Present: atraumatic, normocephalic, normal inspection Eye exam: Present: normal appearance, PERRL, EOMI. Absent: scleral icterus, conjunctival injection, periorbital swelling Respiratory exam: Present: normal lung sounds bilaterally. Absent: respiratory distress, wheezes, rales, rhonchi, stridor Cardiovascular Exam: Present: regular rate, normal rhythm, normal heart sounds. Absent: systolic murmur, diastolic murmur, rubs, gallop, clicks GI/Abdominal exam: Present: soft, normal bowel sounds. Absent: distended, tenderness, guarding, rebound, rigid Course Vital Signs 04/04/23 04/04/23 09:45 12:27 Temperature 98.3 F 97.6 F Pulse Rate 89 85 Respiratory 18 18 Rate Blood Pressure 191/102 197/115 O2 Sat by Pulse 96 97 Oximetry Medical Decision Making - Medical Decision Making Was pt. sent in by a medical professional or institution (, PA, ANALYSIS LEAD, urgent care, hospital, or skilled nursing...) When possible be specific @ -No Did you speak to anyone other than the patient for history (EMS, parent, family, police, friend...)? What history was obtained from this source @ -No Did you review nursing and triage notes (agree or disagree)? Why? @ -I reviewed and agree with nursing and triage notes Were old charts reviewed (outside hosp., previous admission, EMS record, old EKG, old radiological studies, urgent care reports/EKG's, skilled nursing records)? Report findings @ -No old charts were reviewed Differential Diagnosis (chest pain, altered mental status, abdominal pain women, abdominal pain men, vaginal bleeding, weakness, fever, dyspnea, syncope, headache, dizziness, GI bleed, back pain, seizure, CVA, palpatations, mental health, musculoskeletal)? @ -Hematuria, Gonzales catheter issues EKG interpreted by me (3pts min.). @ -None X-rays interpreted by me (1pt min.). @ -None done CT interpreted by me (1pt min.). @ -None done U/S interpreted by me (1pt. min.). @ -None done What testing was considered but not performed or refused? (CT, X-rays, U/S, labs)? Why? @ -None What meds were considered but not given or refused? Why? @ -None Did you discuss the management of the patient with other professionals (professionals i.e. , PA, ANALYSIS LEAD, lab, RT, psych nurse, social worker masters, it infrastructure manager, teacher, health promotion officer, field case manager)? Give summary @ -No Was smoking cessation discussed for >3mins.? @ -No Was critical care preformed (if so, how long)? @ -No Were there social determinants of health that impacted care today? How? (Homelessness, low income, unemployed, alcoholism, drug addiction, transportation, low edu. Level, literacy, decrease access to med. care, senior living, rehab)? @ -No Was there de-escalation of care discussed even if they declined (Discuss DNR or withdrawal of care, Hospice)? DNR status @ -No What co-morbidities impacted this encounter? (DM, HTN, Smoking, COPD, CAD, Cancer, CVA, ARF, Chemo, Hep., AIDS, mental health diagnosis, sleep apnea, morbid obesity)? @ -None Was patient admitted / discharged? Hospital course, mention meds given and route, prescriptions, significant lab abnormalities, going to OR and other pertinent info. @ -Discharge patient needs a follow-up with urology as he has known prostate issues, prostate cancer. Patient requested have Gonzales catheter removed he did have some urine output was states he feels occasional retained. Gonzales catheter was replaced and discharge patient advised that he needs to follow up with urology as instructed multiple times this week. Undiagnosed new problem with uncertain prognosis? @ -No Drug Therapy requiring intensive monitoring for toxicity (Heparin, Nitro, Insulin, Cardizem)? @ -No Were any procedures done? @ -No Diagnosis/symptom? @ -Hematuria, Gonzales catheter complications Acute, or Chronic, or Acute on Chronic? @ -Acute chronic Uncomplicated (without systemic symptoms) or Complicated (systemic symptoms)? @ -Uncomplicated Side effects of treatment? @ -No] Exacerbation, Progression, or Severe Exacerbation? @ -[No] Poses a threat to life or bodily function? How? (Chest pain, [place], [place], pneumonia, PE, COPD, DKA, ARF, appy, cholecystitis, CVA, Diverticulitis, Homicidal, Suicidal, threat to staff... and all critical care pts) @ -[No] Disposition Clinical Impression: Hematuria, Complication, blocked Gonzales catheter Disposition: HOME SELF-CARE Condition: Stable Instructions (If sedation given, give patient instructions): Hematuria (ED) Additional Instructions: Please contact urology today for follow-up appointment.Please return to the Emergency Department if symptoms worsen or any other concerns. Is patient prescribed a controlled substance at d/c from ED?: No Referrals: Brown Diaz DO [Primary Care Provider] - 1-2 days Rakan Caldwell MD [STAFF PHYSICIAN] - 1-2 days Time of Disposition: 13:47
[2023-04-04 12:28] VITALS: TEMP 97.6
[2023-04-04 14:25] VITALS: BP 194/117; PULSE 84; RESP 17
== END 2023-04-04 14:28 | disposition home or self-care (01) ==
LOC: EC 09:26
DX: T83.091A Other mechanical complication of indwelling urethral catheter, initial encounter (principal); R31.9 Hematuria, unspecified; E11.9 Type 2 diabetes mellitus without complications; I10 Essential (primary) hypertension; C61 Malignant neoplasm of prostate; Z79.4 Long term (current) use of insulin; Z79.82 Long term (current) use of aspirin; Z79.899 Other long term (current) drug therapy; Z87.891 Personal history of nicotine dependence
CPT/HCPCS: 51702; 99283